=== PATIENT | male | born 1950 | race Caucasian/White ===

== ENCOUNTER → 2017-11-07 10:47 | Outpatient (CLI) | payer OTHER, SELFPAY ==
--- NOTE | 2017-11-07 11:02 | PCM.CR.HP2 ---
CR - History & Physical - General Arrival date:: 11/07/17 Arrival time:: 11:02 Date of Admission: 11/07/17 Referring Physician: LILLIAN Primary Diagnosis: PCI with stent - History of Present Cardiac Event Onset Date: Enter Onset Date of cardiac illnesses in Comment field below Angina:: Yes - 08/24/17 [place]:: No CABG:: No PTCA:: Yes - 08/29/17 Valve Replacement/Repair:: No Pacemaker/ICD: No Type of Symptoms:: chest pain. Interventions with present event:: PTCA Were there any complications?: no - Medications Home Medications: Ambulatory Orders Medication Instructions Recorded Aspirin [Lo-Dose Aspirin EC] 81 mg PO DAILY 11/07/17 Atorvastatin Calcium [Lipitor] 40 mg PO QHS 11/07/17 Brimonidine Tartrate 0.2% 1 drop EACH EYE BID 11/07/17 [Brimonidine 0.2% 5Ml Bottle] Cyanocobalamin (Vitamin B-12) 1,000 mcg PO DAILY 11/07/17 [Vitamin B-12] Doxazosin Mesylate [Cardura] 2 mg PO DAILY 11/07/17 Isosorbide Mononitrate [Imdur] 30 mg PO BID 11/07/17 Metoprolol Tartrate [Lopressor 25 mg PO BID 11/07/17 (Beta [place])] Multivit-Min/Iron/Folic Acid/K 1 tab DAILY 11/07/17 [Adults Multivitamin Caplet] [place]-3 Fatty Acids/Fish Oil [Fish 1 each PO DAILY 11/07/17 Oil 1,000 mg Capsule] Potassium (Otc) [Potassium Otc] 99 mg PO DAILY 11/07/17 Sertraline HCl [Zoloft] 200 mg PO DAILY 11/07/17 Ticagrelor [Brilinta] 90 mg PO BID 11/07/17 Ubidecarenone [Coenzyme Q10] 10 mg DAILY 11/07/17 Vitamin E 400 unit PO DAILY 11/07/17 - Allergies Allergies/Adverse Reactions: Allergies No Known Allergies Allergy (Verified 11/07/17 11:39) - Sleep Disorder Evaluation Hx of Sleep Apnea: No Do you snore loudly (louder than talking or can be heard through closed doors)?: Yes Do you often feel tired/ fatigued/ sleepy during daytime?: Yes Has anyone observed you stop breathing during sleep?: No History of Hypertension (for STOP score): No STOP Results: Positive Advanced Directives - Advanced Directives Power of Service Supervisor: Yes Living Will: Yes Advance Directives Information Provided: Yes Advance Directives on File: No DNR Order?:: No Past Medical History - Problems and Co-Morbidities Problems & Co-Morbidities: Dyslipidemia, Obesity, Sedentary Lifestyle, Depression, Anxiety - Past Medical Illness Past Medical Illness: Arthritis, Back Problems - bad back, Neuropathy - Has PAD, tingling in feet., Kidney/Renal Problems - Has small kidney stones Other Medical Illnesses:: has AAA that is being monitored. Has small gallbladder stones. - Past Cardiac Illness Past Cardiac Illness: Arrhythmias - A fib history - Other Other: Vision/Eye Problems - glaucoma, glasses, Hearing Problems - some [facility] - Cardiology Procedures/Interventions Cardiology Procedures/Interventions: Angioplasty, PCI w/Stenting, Heart Catheterization, Echocardiogram, Stress Test (regular) - Family History Summary Family History: Heart Disease: Sibling, Paternal, Maternal - sister 50's, dad age 64, mom with pacer. Additional Family History: One sister with parkinsons Review of Systems - Review of Systems Hints: Right click = Denies (Slash). Left click = Reports ([place]) Review of Present Symptoms: Reports: PVD, Angina - Seeing top precipitator operator tomorrow due to having occas chest pain., Dizziness/Lightheadedness - Occasionally, Fatigue, Appetite - Normal, Appetite - Special Diet, Sleep - Normal - doesn't sleep well due to PTSD. Denies: Shortness of Breath at Rest, Shortness of Breath with Exertion, Operative Discomfort, Wound Healing, Heart Arrhythmia/Irregularities, Sexual Changes Risk Factor Assessment - Chief Complaint Chief Complaint: To get better - Pulse Pulse Rate: 82 - Hypertension Blood Pressure Sitting - Right Arm: 110/70 Blood Pressure Sitting - Left Arm: 116/70 - Stress Stress: Long-standing - Diabetes Nutrition Referral for Diabetes: Yes - Obesity Height: 1.7 m Weight:: 88.451 kg Weight in Pounds: 195.0 lbs Body Mass Index (BMI): 30.5 Nutritional Referral for Obesity: Yes - Pt plans to contact sourcing manager at [place] for education and join group sessions. - Physical Inactivity Physical Inactivity: None - Risk Stratification Risk Guidelines: Lowest Risk: Risk Factor for Smoking - quit 25 years ago., Risk Factor for Diabetes, Risk Factor for Hypertension, Moderate Risk: Risk Factor for Dyslipidemia, Risk Factor for Obesity, Risk Factor for Sedentary Lifestyle, Highest Risk: Risk Factor for Depression - For Smoking Smoking Risk Guidelines: Smoking Low Risk: None or quit greater than 6 months ago. Smoking Moderate Risk: Smoker or quit 6 months or less ago. Smoking High Risk: Smoker - For Dyslipidemia Dyslipidemia Risk Guidelines: Low Risk: Moderate Risk: High Risk: 15-25% fat 25.1-29% fat >/= 30% fat. <7% sat fat 7-9% sat fat >9% sat fat. <150 mg chol 150-299 mg chol >/= 300 mg chol. LDL <100 LDL 100-129 LDL >/= 130. Chol/HDL ratio <5.0 Chol/HDL ratio 5.0-6.0 Chol/HDL ratio >6.0. Triglycerides <100 Triglycerides 100-149 Triglycerides >/= 150 - For Diabetes Mellitus Diabetes Risk Guidelines: Diabetes Low Risk: HgA1c <6.5% and/or FBG <120. Diabetes Moderate Risk: HgA1c 6.6-7.9% and/or FBG 120-180. Diabetes High Risk: HgA1c >/= 8% and/or FBG >180 - For Obesity/Overweight Obesity/Overweight Risk Guidelines: Obesity Low Risk: BMI <25.0. Obesity Moderate Risk: BMI 25-29.9. Obesity High Risk: BMI >/= 30.0 - For Hypertension Hypertension Risk Guidelines: Hypertension Low Risk: Systolic <120 and Diastolic <80. Hypertension Moderate Risk: Systolic 120-139 and Diastolic 80-89. Hypertension High Risk: Systolic >/= 140 and Diastolic >/= 90 - For Sedentary Lifestyle Sedentary Lifestyle Risk Guidelines: Sedentary Lifestyle Low Risk: >/= 1,500 kcal/week. Sedentary Lifestyle Moderate Risk: 700-1,499 kcal/week. Sedentary Lifestyle High Risk: < 700 kcal/week - For Depression Depression Risk Guidelines: Depression Low Risk: Not clinically depressed. Depression Moderate Risk: Mildly depressed. Depression High Risk: Clinically depressed Social History - Smoking History Smoking Status: Former smoker - Alcohol Use Alcohol Usage: Yes - occas beer or red wine - Occupation Occupation (List type of work in comments):: Retired - Hobbies, Recreation, Social Activities Hobbies: Sports, Other - fishing, hunting, yardwork Recreational Activities: I am able to engage in most, but not all activities Marital Status - Status Marital Status: - Current Living Arrangements Living Environment:: Family, Spouse - Children How many children do you have?: 3 Do any of your children live nearby?: Yes - Safety Do you feel safe in your surroundings?: Yes - Assistance Do you need any assistance at home?: no
--- NOTE | 2017-11-07 11:04 | PCM.CR.ITP ---
Exercise - Initial Assessment - Visit Date of Eval: 11/07/17 - Stages of Change Stages of Change:: Action - Exercise Prescription Mode:: Treadmill, Biodyne, Rower, Airdyne, NuStep - Intervention Home Exercise/Activity Goal:: Sitting Time <3 hrs/day - Education Goals:: Warm-up, RPE JANUSZ Scale, S/S, Safe Exercise, Self-Monitoring Nutrition - Initial Assessment - Program Goals Nutrition Program Goals: LDL <70. Total Cholesterol <200. HDL >45. Triglycerides <150. HgbA1C <7%. BMI <25 - Visit Date of Assessment:: 11/07/17 - Stages of Change Stages of Change:: Action - Diabetes Diabetes:: No - Weight Management Height: 1.7 m Weight:: 88.451 kg - Intervention Referral to dietitian:: Yes - Plans to contact [facility] for physical education specialist counselling. Referral to Diabetic Clinic:: No Will attend diet classes:: Yes - Education Gave educational materials for:: Relate diabetes to coronary artery disease, Healthy eating Tobacco - Initial Assessment - Program Goals Tobacco Program Goals: Complete smoking cessation. Attend education classes. Improve Knowledge Test score - Stage of Change Stages of Change:: Maintenance - quit smoking 25 years ago. - Learning Barriers Learning Barriers: Hearing, Vision, Ready to Learn Total Score:: 6 - Family Support Do you have family support?: Yes - Tobacco Use How long ago did you quit using tobacco products?: Greater than or equal to 6 months ago Do you use smokeless tobacco?: No - Intervention Smoking Cessation Referral:: No Individual Education/Counseling:: No Education Schedule Given:: Yes - Education Gave educational material for:: Coronary artery disease, Risk factors, Sexuality, Medical compliance, Cardiac A&P, Angina signs & symptoms Psychosocial - Initial Assess - Target Goals Target Goals: Assess presence or absence of depression. Using a valid screening tool, maximizes coping skills. Positive support system - Stages of Change Stages of Change:: Action - Psychosocial Test Tool Used:: HANDS Depression Questionnaire Self-reported stress:: yes, PTSD Total Mood Screening Score:: 20 Self-Efficacy Score:: 7 - Intervention PS - Interventions: Yes Referral to Mental Health - already connected with counselling thru [facility], Yes Attend Stress Management Classes, Yes Uses Stress Management Skills, No Referral to [facility] Case Management, No Referral to Physician - Education Gave educational materials for:: Coping techniques, Signs & symptoms of depression, Stress management, Relaxation techniques - Patient/Program Goal Preventative Medication(s):: NIR inhibitor, Clopidogrel, Beta cindy, Statin/lipid - Assistive Devices Assistive Devices:: None Fall Risk Assessed:: Yes Patient Health Questionnaire Initial Assessment 1. Little interest or pleasure in doing things: Nearly every day 2. Feeling down, depressed, or hopeless: Nearly every day 3. Trouble falling or staying asleep, or sleeping too much: Nearly every day 4. Feeling tired or having little energy: Nearly every day 5. Poor appetite or overeating: Nearly every day 6. Feeling bad about yourself -- or that you are a failure or have let yourself or your family down: More than half the days 7. Trouble concentrating on things, such as reading the newspaper or watching television: Several days 8. Moving or speaking so slowly that other people could have noticed. Or the opposite - being so fidgety or restless that you have been moving around a lot more than usual: Several days 9. Thoughts that you would be better off , or of hurting yourself in some way: Several days How difficult have these problems made it for you to do your work, take care of things at home, or get along with other people?: Very difficult - Offered [facility] mental health and info given. Has regular therapist at [facility] sees often. Has crisis number. States is ok now. Total Score: 20 Knowledge Test - Check your knowledge Initial The #1 cause of in the [place] each year is:: Heart disease Which of the following is a common treatment for heart disease?: All of the above The arteries that feed the heart are called:: Coronary arteries HDL cholesterol is known as the good cholesterol.: False What disease increases your risk for heart disease?: Diabetes What food product raises blood cholesterol level the most?: Saturated fat The bad cholesterol in the blood is called:: HDL Hypertension is another word for:: High stress A blood pressure reading of 148/88 is considered normal.: False Exercise will only benefit your health when your heart rate reaches a target level.: True Total Score:: 6 Self-Efficacy Initial Assessment We would like to know how confident you are in doing certain activities. Please select your confidence level for:: Select your confidence level for the following using the scale 1-10 where 1 is not at all confident and 10 is totally confident. Your score is the average of all 6 responses. Fatigue: How confident are you that you can keep the fatigue caused by your disease from interfering with the things you want to do? Select Number: 10 Physical Discomfort or Pain: How confident are you that you can keep the physical discomfort or pain of your disease from interfering with the things you want to do? Select Number: 10 Emotional Distress: How confident are you that you can keep the emotional distress caused by your disease from interfering with the things you want to do? Select Number: 6 Other Symptoms or Health Problems: How confident are you that you can keep other symptoms or health problems from interfering with the things you want to do? Select Number: 6 Different Tasks and Activities: How confident are you that you can do the different tasks and activities needed to manage your health condition so as to reduce your need to see a doctor? Select Number: 5 Medication: How confident are you that you can do things other than just taking medication to reduce how much your illness affects your everyday life? Select Number: 5 Total Score:: 7 Nutrition Survey - Nutrition Survey Instructions Scoring Instructions: Scoring is as follows: Yes = 1 points. No = 0 point. Patient score that is >/=12 is considered to be at potential nutritional risk and could benefit from a referral to a registered dietitian. - Nutrition Survey Initial Have you lost >10 lbs over the past 2 months without trying?: No Are you following a special diet at home for diabetes, low fat, or low salt?: No Are you interested in meeting with a dietitian for help understanding your diet?: Yes Do you eat less than 3 meals a day?: No Do you eat fatty meats (saenz, sausage, ribs, etc), fried foods, desserts, large amounts of salad dressings, margarine, butter, or cheese most days?: Yes Do you have food allergies? [Enter types in comment field]: No Do you eat in restaurants more than 3 times a week?: No Do you season food with salt, seasoning salt, or garlic salt?: Yes Do you used canned, boxed, frozen meals, or soups, seasoning packets?: No - Patient plans to contact [facility] for Dietary referral counselling. Total Score:: 3 Cardiac Rehabilitation Goals - Cardiac Rehab Goals Cardiac Rehabilitation Goals: 1. Maintain the individual as the primary focus of care. 2. To improve the patient's quality of life. 3. Identification of cardiac risk factors and provide cardiac risk factor management. 4. Enhance the psychosocial status of the patient. 5. Reconditioning enough to allow the patient to resume customary activities. 6. Control symptoms of cardiac disease - Scale Scale for measuring improvement of personal goals: Enter appropriate number in Comments. 2 = Unchanged. 3 = Slightly Better. 4 = Moderate Improvement. 5 = Met my Goal Initial Assessment Personal Goals: 30-day Re-assessment: Improve management of stress and emotions, Improve energy level, Participate in home exercise program, Improve knowledge of cardiac disease, Improve muscle strength and endurance, Improve diet and eating habits (eat healthier), Control risk factors (learn risk factor modification), Other goal:
--- NOTE | 2017-11-07 11:20 | CR.HP_ITS ---
CR - History & Physical - General Arrival date:: 11/07/17 Arrival time:: 11:02 Date of Admission: 11/07/17 Referring Physician: LILLIAN Primary Diagnosis: PCI with stent - History of Present Cardiac Event Onset Date: Enter Onset Date of cardiac illnesses in Comment field below Angina:: Yes - 08/24/17 [place]:: No CABG:: No PTCA:: Yes - 08/29/17 Valve Replacement/Repair:: No Pacemaker/ICD: No Type of Symptoms:: chest pain. Interventions with present event:: PTCA Were there any complications?: no - Medications Home Medications: Ambulatory Orders Medication Instructions Recorded Aspirin [Lo-Dose Aspirin EC] 81 mg PO DAILY 11/07/17 Atorvastatin Calcium [Lipitor] 40 mg PO QHS 11/07/17 Brimonidine Tartrate 0.2% 1 drop EACH EYE BID 11/07/17 [Brimonidine 0.2% 5Ml Bottle] Cyanocobalamin (Vitamin B-12) 1,000 mcg PO DAILY 11/07/17 [Vitamin B-12] Doxazosin Mesylate [Cardura] 2 mg PO DAILY 11/07/17 Isosorbide Mononitrate [Imdur] 30 mg PO BID 11/07/17 Metoprolol Tartrate [Lopressor 25 mg PO BID 11/07/17 (Beta [place])] Multivit-Min/Iron/Folic Acid/K 1 tab DAILY 11/07/17 [Adults Multivitamin Caplet] [place]-3 Fatty Acids/Fish Oil [Fish 1 each PO DAILY 11/07/17 Oil 1,000 mg Capsule] Potassium (Otc) [Potassium Otc] 99 mg PO DAILY 11/07/17 Sertraline HCl [Zoloft] 200 mg PO DAILY 11/07/17 Ticagrelor [Brilinta] 90 mg PO BID 11/07/17 Ubidecarenone [Coenzyme Q10] 10 mg DAILY 11/07/17 Vitamin E 400 unit PO DAILY 11/07/17 - Allergies Allergies/Adverse Reactions: Allergies No Known Allergies Allergy (Verified 11/07/17 11:39) - Sleep Disorder Evaluation Hx of Sleep Apnea: No Do you snore loudly (louder than talking or can be heard through closed doors)? : Yes Do you often feel tired/ fatigued/ sleepy during daytime?: Yes Has anyone observed you stop breathing during sleep?: No History of Hypertension (for STOP score): No STOP Results: Positive Advanced Directives - Advanced Directives Power of Pathology Supervisor: Yes Living Will: Yes Advance Directives Information Provided: Yes Advance Directives on File: No DNR Order?:: No Past Medical History - Problems and Co-Morbidities Problems & Co-Morbidities: Dyslipidemia, Obesity, Sedentary Lifestyle, Depression, Anxiety - Past Medical Illness Past Medical Illness: Arthritis, Back Problems - bad back, Neuropathy - Has PAD, tingling in feet., Kidney/Renal Problems - Has small kidney stones Other Medical Illnesses:: has AAA that is being monitored. Has small gallbladder stones. - Past Cardiac Illness Past Cardiac Illness: Arrhythmias - A fib history - Other Other: Vision/Eye Problems - glaucoma, glasses, Hearing Problems - some [facility] - Cardiology Procedures/Interventions Cardiology Procedures/Interventions: Angioplasty, PCI w/Stenting, Heart Catheterization, Echocardiogram, Stress Test (regular) - Family History Summary Family History: Heart Disease: Sibling, Paternal, Maternal - sister 50's, dad age 64, mom with pacer. Additional Family History: One sister with parkinsons Review of Systems - Review of Systems Hints: Right click = Denies ([place]ash). Left click = Reports ([place]) Review of Present Symptoms: Reports: PVD, Angina - Seeing tractor mechanic apprentice tomorrow due to having occas chest pain., Dizziness/Lightheadedness - Occasionally, Fatigue, Appetite - Normal, Appetite - Special Diet, Sleep - Normal - doesn't sleep well due to PTSD. Denies: Shortness of Breath at Rest, Shortness of Breath with Exertion, Operative Discomfort, Wound Healing, Heart Arrhythmia/ Irregularities, Sexual Changes Risk Factor Assessment - Chief Complaint Chief Complaint: To get better - Pulse Pulse Rate: 82 - Hypertension Blood Pressure Sitting - Right Arm: 110/70 Blood Pressure Sitting - Left Arm: 116/70 - Stress Stress: Long-standing - Diabetes Nutrition Referral for Diabetes: Yes - Obesity Height: 1.7 m Weight:: 88.451 kg Weight in Pounds: 195.0 lbs Body Mass Index (BMI): 30.5 Nutritional Referral for Obesity: Yes - Pt plans to contact morgue technician at [place] for education and join group sessions. - Physical Inactivity Physical Inactivity: None - Risk Stratification Risk Guidelines: Lowest Risk: Risk Factor for Smoking - quit 25 years ago., Risk Factor for Diabetes, Risk Factor for Hypertension, Moderate Risk: Risk Factor for Dyslipidemia, Risk Factor for Obesity, Risk Factor for Sedentary Lifestyle, Highest Risk: Risk Factor for Depression - For Smoking Smoking Risk Guidelines: Smoking Low Risk: None or quit greater than 6 months ago. Smoking Moderate Risk: Smoker or quit 6 months or less ago. Smoking High Risk: Smoker - For Dyslipidemia Dyslipidemia Risk Guidelines: Low Risk: Moderate Risk: High Risk: 15-25% fat 25.1-29% fat >/= 30% fat. <7% sat fat 7-9% sat fat >9% sat fat. <150 mg chol 150-299 mg chol >/= 300 mg chol. LDL <100 LDL 100-129 LDL >/= 130. Chol/HDL ratio <5.0 Chol/HDL ratio 5.0-6.0 Chol/HDL ratio >6.0. Triglycerides <100 Triglycerides 100-149 Triglycerides >/= 150 - For Diabetes Mellitus Diabetes Risk Guidelines: Diabetes Low Risk: HgA1c <6.5% and/or FBG <120. Diabetes Moderate Risk: HgA1c 6.6-7.9% and/or FBG 120-180. Diabetes High Risk: HgA1c >/= 8% and/or FBG >180 - For Obesity/Overweight Obesity/Overweight Risk Guidelines: Obesity Low Risk: BMI <25.0. Obesity Moderate Risk: BMI 25-29.9. Obesity High Risk: BMI >/= 30.0 - For Hypertension Hypertension Risk Guidelines: Hypertension Low Risk: Systolic <120 and Diastolic <80. Hypertension Moderate Risk: Systolic 120-139 and Diastolic 80-89. Hypertension High Risk: Systolic >/= 140 and Diastolic >/= 90 - For Sedentary Lifestyle Sedentary Lifestyle Risk Guidelines: Sedentary Lifestyle Low Risk: >/= 1 ,500 kcal/week. Sedentary Lifestyle Moderate Risk: 700-1,499 kcal/week. Sedentary Lifestyle High Risk: < 700 kcal/week - For Depression Depression Risk Guidelines: Depression Low Risk: Not clinically depressed. Depression Moderate Risk: Mildly depressed. Depression High Risk: Clinically depressed Social History - Smoking History Smoking Status: Former smoker - Alcohol Use Alcohol Usage: Yes - occas beer or red wine - Occupation Occupation (List type of work in comments):: Retired - Hobbies, Recreation, Social Activities Hobbies: Sports, Other - fishing, hunting, yardwork Recreational Activities: I am able to engage in most, but not all activities Marital Status - Status Marital Status: - Current Living Arrangements Living Environment:: Family, Spouse - Children How many children do you have?: 3 Do any of your children live nearby?: Yes - Safety Do you feel safe in your surroundings?: Yes - Assistance Do you need any assistance at home?: no
--- NOTE | 2017-11-07 11:27 | CR.ITP_ITS ---
Exercise - Initial Assessment - Visit Date of Eval: 11/07/17 - Stages of Change Stages of Change:: Action - Exercise Prescription Mode:: Treadmill, Biodyne, Rower, Airdyne, NuStep - Intervention Home Exercise/Activity Goal:: Sitting Time <3 hrs/day - Education Goals:: Warm-up, RPE JANUSZ Scale, S/S, Safe Exercise, Self-Monitoring Nutrition - Initial Assessment - Program Goals Nutrition Program Goals: LDL <70. Total Cholesterol <200. HDL >45. Triglycerides <150. HgbA1C <7%. BMI <25 - Visit Date of Assessment:: 11/07/17 - Stages of Change Stages of Change:: Action - Diabetes Diabetes:: No - Weight Management Height: 1.7 m Weight:: 88.451 kg - Intervention Referral to dietitian:: Yes - Plans to contact [facility] for email engineer counselling. Referral to Diabetic Clinic:: No Will attend diet classes:: Yes - Education Gave educational materials for:: Relate diabetes to coronary artery disease, Healthy eating Tobacco - Initial Assessment - Program Goals Tobacco Program Goals: Complete smoking cessation. Attend education classes. Improve Knowledge Test score - Stage of Change Stages of Change:: Maintenance - quit smoking 25 years ago. - Learning Barriers Learning Barriers: Hearing, Vision, Ready to Learn Total Score:: 6 - Family Support Do you have family support?: Yes - Tobacco Use How long ago did you quit using tobacco products?: Greater than or equal to 6 months ago Do you use smokeless tobacco?: No - Intervention Smoking Cessation Referral:: No Individual Education/Counseling:: No Education Schedule Given:: Yes - Education Gave educational material for:: Coronary artery disease, Risk factors, Sexuality , Medical compliance, Cardiac A&P, Angina signs & symptoms Psychosocial - Initial Assess - Target Goals Target Goals: Assess presence or absence of depression. Using a valid screening tool, maximizes coping skills. Positive support system - Stages of Change Stages of Change:: Action - Psychosocial Test Tool Used:: HANDS Depression Questionnaire Self-reported stress:: yes, PTSD Total Mood Screening Score:: 20 Self-Efficacy Score:: 7 - Intervention PS - Interventions: Yes Referral to Mental Health - already connected with counselling thru [facility], Yes Attend Stress Management Classes, Yes Uses Stress Management Skills, No Referral to [facility] Case Management, No Referral to Physician - Education Gave educational materials for:: Coping techniques, Signs & symptoms of depression, Stress management, Relaxation techniques - Patient/Program Goal Preventative Medication(s):: NIR inhibitor, Clopidogrel, Beta cindy, Statin/ lipid - Assistive Devices Assistive Devices:: None Fall Risk Assessed:: Yes Patient Health Questionnaire Initial Assessment 1. Little interest or pleasure in doing things: Nearly every day 2. Feeling down, depressed, or hopeless: Nearly every day 3. Trouble falling or staying asleep, or sleeping too much: Nearly every day 4. Feeling tired or having little energy: Nearly every day 5. Poor appetite or overeating: Nearly every day 6. Feeling bad about yourself -- or that you are a failure or have let yourself or your family down: More than half the days 7. Trouble concentrating on things, such as reading the newspaper or watching television: Several days 8. Moving or speaking so slowly that other people could have noticed. Or the opposite - being so fidgety or restless that you have been moving around a lot more than usual: Several days 9. Thoughts that you would be better off , or of hurting yourself in some way: Several days How difficult have these problems made it for you to do your work, take care of things at home, or get along with other people?: Very difficult - Offered [facility] mental health and info given. Has regular therapist at [facility] sees often. Has crisis number. States is ok now. Total Score: 20 Knowledge Test - Check your knowledge Initial The #1 cause of in the [place] each year is:: Heart disease Which of the following is a common treatment for heart disease?: All of the above The arteries that feed the heart are called:: Coronary arteries HDL cholesterol is known as the good cholesterol.: False What disease increases your risk for heart disease?: Diabetes What food product raises blood cholesterol level the most?: Saturated fat The bad cholesterol in the blood is called:: HDL Hypertension is another word for:: High stress A blood pressure reading of 148/88 is considered normal.: False Exercise will only benefit your health when your heart rate reaches a target level.: True Total Score:: 6 Self-Efficacy Initial Assessment We would like to know how confident you are in doing certain activities. Please select your confidence level for:: Select your confidence level for the following using the scale 1-10 where 1 is not at all confident and 10 is totally confident. Your score is the average of all 6 responses. Fatigue: How confident are you that you can keep the fatigue caused by your disease from interfering with the things you want to do? Select Number: 10 Physical Discomfort or Pain: How confident are you that you can keep the physical discomfort or pain of your disease from interfering with the things you want to do? Select Number: 10 Emotional Distress: How confident are you that you can keep the emotional distress caused by your disease from interfering with the things you want to do? Select Number: 6 Other Symptoms or Health Problems: How confident are you that you can keep other symptoms or health problems from interfering with the things you want to do? Select Number: 6 Different Tasks and Activities: How confident are you that you can do the different tasks and activities needed to manage your health condition so as to reduce your need to see a doctor? Select Number: 5 Medication: How confident are you that you can do things other than just taking medication to reduce how much your illness affects your everyday life? Select Number: 5 Total Score:: 7 Nutrition Survey - Nutrition Survey Instructions Scoring Instructions: Scoring is as follows: Yes = 1 points. No = 0 point. Patient score that is >/=12 is considered to be at potential nutritional risk and could benefit from a referral to a registered dietitian. - Nutrition Survey Initial Have you lost >10 lbs over the past 2 months without trying?: No Are you following a special diet at home for diabetes, low fat, or low salt?: No Are you interested in meeting with a dietitian for help understanding your diet? : Yes Do you eat less than 3 meals a day?: No Do you eat fatty meats (saenz, sausage, ribs, etc), fried foods, desserts, large amounts of salad dressings, margarine, butter, or cheese most days?: Yes Do you have food allergies? [Enter types in comment field]: No Do you eat in restaurants more than 3 times a week?: No Do you season food with salt, seasoning salt, or garlic salt?: Yes Do you used canned, boxed, frozen meals, or soups, seasoning packets?: No - Patient plans to contact [facility] for Dietary referral counselling. Total Score:: 3 Cardiac Rehabilitation Goals - Cardiac Rehab Goals Cardiac Rehabilitation Goals: 1. Maintain the individual as the primary focus of care. 2. To improve the patient's quality of life. 3. Identification of cardiac risk factors and provide cardiac risk factor management. 4. Enhance the psychosocial status of the patient. 5. Reconditioning enough to allow the patient to resume customary activities. 6. Control symptoms of cardiac disease - Scale Scale for measuring improvement of personal goals: Enter appropriate number in Comments. 2 = Unchanged. 3 = Slightly Better. 4 = Moderate Improvement. 5 = Met my Goal Initial Assessment Personal Goals: 30-day Re-assessment: Improve management of stress and emotions , Improve energy level, Participate in home exercise program, Improve knowledge of cardiac disease, Improve muscle strength and endurance, Improve diet and eating habits (eat healthier), Control risk factors (learn risk factor modification), Other goal:
[2017-11-07 12:28] VITALS: BP 110/70; BP 116/70; PULSE 82; BMI 30.5
== END ==
PROVIDERS: Family Provider Family Medicine; PCP Family Medicine
DX: I25.10 Atherosclerotic heart disease of native coronary artery without angina pectoris (principal)

== ENCOUNTER 2017-11-15 11:30 | Outpatient (RCR) | payer OTHER, SELFPAY | END 2017-11-16 23:59 | LOC: CR 11:30 | PROVIDERS: Family Provider Family Medicine; PCP Family Medicine | DX: I25.10 Atherosclerotic heart disease of native coronary artery without angina pectoris (principal) | CPT/HCPCS: 93798 ==

== ENCOUNTER 2017-12-16 11:30 | Outpatient (RCR) | payer OTHER, SELFPAY ==
--- NOTE | 2017-12-09 13:39 | PCM.CR.ITP ---
General Information - General Information Admitting Diagnosis: PTCA w/coronary stenting - Education/Goals Barriers to Learning: Hearing Impairment, Vision Impairment Individual Counseling: Initial Assessment: Abnormal Cholesterol Levels, High Blood Pressure, Overweight/Obesity, Sedentary Lifestyle, 30-Day Assessment: Abnormal Cholesterol Levels, High Blood Pressure, Overweight/Obesity, Sedentary Lifestyle, 60-Day Assessment: Abnormal Cholesterol Levels, High Blood Pressure, Overweight/Obesity, Sedentary Lifestyle Cardiac Rehabilitation Goals: 1. Maintain the individual as the primary focus of care. 2. To improve the patient's quality of life. 3. Identification of cardiac risk factors and provide cardiac risk factor management. 4. Enhance the psychosocial status of the patient. 5. Reconditioning enough to allow the patient to resume customary activities. 6. Control symptoms of cardiac disease Scale for measuring improvement of personal goals: Enter appropriate number in Comments. 2 = Unchanged. 3 = Slightly Better. 4 = Moderate Improvement. 5 = Met my Goal Personal Goals: Initial Assessment: Improve management of stress and emotions - doing better, Improve energy level - improved, Participate in home exercise program, Improve knowledge of cardiac disease - in progress, Improve muscle strength and endurance - increased, Improve diet and eating habits (eat healthier) - healthier choices, Control risk factors (learn risk factor modification), 30-day Re-assessment: Improve management of stress and emotions, Improve energy level, Participate in home exercise program, Improve knowledge of cardiac disease, Improve muscle strength and endurance, Improve diet and eating habits (eat healthier), Control risk factors (learn risk factor modification) Exercise - 60-Day Assessment - Visit Date of Eval: 12/09/17 Session #:: 12 - Approved for 18 through [facility] - Stages of Change Stages of Change:: Action - Exercise Prescription Mode:: Treadmill, Rower, Airdyne, NuStep Frequency (x/week): 3 Duration:: 35 METs: 4.5 Target Heart Rate:: 113-120 w/ max HR 123 - Hypertension Resting Blood Pressure:: 120/62 Peak Exercise Blood Pressure:: 140/64 Medication Changes:: No - Intervention Home Exercise/Activity Goal:: Moderate Exercise 30 min/day x 5 days/wk - Education Goals:: Warm-up, RPE JANUSZ Scale, S/S, Safe Exercise, Self-Monitoring - Exercise Program Goals Exercise Program Goals: Aerobic Activity >30 min - walking more Nutrition - 60-Day Assessment - Program Goals Nutrition Program Goals: LDL <70. Total Cholesterol <200. HDL >45. Triglycerides <150. HgbA1C <7%. BMI <25 - Visit Date of Eval: 12/09/17 - Stages of Change Stages of Change:: Action - Lipids Has the patient seen the dietitian?: No - Diabetes Diabetes:: No Insulin: No Non-Insulin Dependent?: No - Intervention Referral to dietitian:: No Referral to Diabetic Clinic:: No Will attend diet classes:: Yes - Education Attended class for:: Healthy eating Tobacco - Initial Assessment - Program Goals Tobacco Program Goals: Complete smoking cessation. Attend education classes. Improve Knowledge Test score - Learning Barriers Learning Barriers: Hearing, Vision, Ready to Learn Tobacco - 60-Day Assessment - Program Goals Tobacco Program Goals: Complete smoking cessation. Attend education classes. Improve Knowledge Test score - Stage of Change Stages of Change:: Action - Learning Barriers Learning Barriers: Participates in education - Family Support Do you have family support?: Yes - Tobacco Use Tobacco Use: Non-smoker Do you use smokeless tobacco?: No - Intervention Smoking Cessation Referral:: No Individual Education/Counseling:: No Education Schedule Given:: Yes - Education Attended class for:: Coronary artery disease, Risk factors, Sexuality, Medical compliance, Cardiac A&P, Angina signs & symptoms Psychosocial - Initial Assess - Target Goals Target Goals: Assess presence or absence of depression. Using a valid screening tool, maximizes coping skills. Positive support system - Psychosocial Test Tool Used:: HANDS Depression Questionnaire - Assistive Devices Fall Risk Assessed:: Yes Psychosocial - 60-Day Assess - Target Goals Target Goals: Assess presence or absence of depression. Using a valid screening tool, maximizes coping skills. Positive support system - Stages of Change Stages of Change:: Action - Psychosocial Test Tool Used:: HANDS Depression Questionnaire Self-reported stress:: no - Intervention PS - Interventions: Yes Attend Stress Management Classes, Yes Uses Stress Management Skills, No Referral to Mental Health, No Referral to [facility] Case Management, No Referral to Physician - Education Attended classes for:: Coping techniques, Signs & symptoms of depression, Stress management, Relaxation techniques - Patient/Program Goal Preventative Medication(s):: Aspirin, Clopidogrel, Statin/lipid - Assistive Devices Assistive Devices:: None Fall Risk Assessed:: Yes Patient Health Questionnaire 60-Day Re-eval Assessment 1. Little interest or pleasure in doing things: More than half the days 2. Feeling down, depressed, or hopeless: More than half the days 3. Trouble falling or staying asleep, or sleeping too much: More than half the days 4. Feeling tired or having little energy: More than half the days 5. Poor appetite or overeating: Several days 6. Feeling bad about yourself -- or that you are a failure or have let yourself or your family down: Several days 7. Trouble concentrating on things, such as reading the newspaper or watching television: Not at all 8. Moving or speaking so slowly that other people could have noticed. Or the opposite - being so fidgety or restless that you have been moving around a lot more than usual: Not at all 9. Thoughts that you would be better off , or of hurting yourself in some way: Not at all How difficult have these problems made it for you to do your work, take care of things at home, or get along with other people?: Somewhat difficult Total Score: 10 Self-Efficacy 60-Day Re-eval Assessment We would like to know how confident you are in doing certain activities. Please select your confidence level for:: Select your confidence level for the following using the scale 1-10 where 1 is not at all confident and 10 is totally confident. Your score is the average of all 6 responses. Fatigue: How confident are you that you can keep the fatigue caused by your disease from interfering with the things you want to do? Select Number: 10 Physical Discomfort or Pain: How confident are you that you can keep the physical discomfort or pain of your disease from interfering with the things you want to do? Select Number: 10 Emotional Distress: How confident are you that you can keep the emotional distress caused by your disease from interfering with the things you want to do? Select Number: 8 Other Symptoms or Health Problems: How confident are you that you can keep other symptoms or health problems from interfering with the things you want to do? Select Number: 8 Different Tasks and Activities: How confident are you that you can do the different tasks and activities needed to manage your health condition so as to reduce your need to see a doctor? Select Number: 9 Medication: How confident are you that you can do things other than just taking medication to reduce how much your illness affects your everyday life? Select Number: 7 Total Score:: 8
[2017-12-09 13:46] VITALS: BP 120/62; BP 140/64
== END 2017-12-16 23:59 ==
LOC: CR 11:30
PROVIDERS: Family Provider Family Medicine; PCP Family Medicine
DX: I25.10 Atherosclerotic heart disease of native coronary artery without angina pectoris (principal)
CPT/HCPCS: 93798

== ENCOUNTER 2017-12-25 11:30 | Outpatient (RCR) | payer OTHER, SELFPAY ==
[2017-12-17 01:00] VITALS: BP 120/62; BP 140/64
== END 2018-01-16 23:59 ==
LOC: CR 11:30
PROVIDERS: Family Provider Family Medicine; PCP Family Medicine
DX: I25.10 Atherosclerotic heart disease of native coronary artery without angina pectoris (principal)
CPT/HCPCS: 93798

== ENCOUNTER 2018-05-05 18:11 | Emergency (ER) | payer MEDICARE, SELFPAY ==
[2018-05-05 18:12] VITALS: BP 185/90; PULSE 70; RESP 19; TEMP 37; O2SAT 100; BMI 29.7
--- NOTE | 2018-05-05 18:25 | EKG12_ITS ---
Test Reason : Blood Pressure : / mmHG Vent. Rate : 068 BPM Atrial Rate : 068 BPM P-R Int : 158 ms QRS Dur : 086 ms QT Int : 430 ms P-R-T Axes : 051 -26 009 degrees QTc Int : 457 ms Sinus rhythm with occasional Premature ventricular complexes Otherwise normal ECG Confirmed by BELA SUH, ALICIA ([id number]), web content editor ANTHONY GRAY ([id number]) on 05/08/2018 1:08:38 PM Referred By: Lucy Kruger Confirmed By:ALICIA CRAMER MD
--- NOTE | 2018-05-05 18:25 | US_ITS ---
STUDY: ABDOMINAL ULTRASOUND - RIGHT UPPER QUADRANT REASON FOR VISIT: Male, 67 years old. Right upper quadrant pain. TECHNIQUE: Ultrasound evaluation of the right upper quadrant was performed with real-time and static tubbs-scale imaging. TECHNICAL QUALITY: Adequate. COMPARISON: None. FINDINGS: Liver: The liver measures 19.8 cm. There is normal echogenicity of the liver. The bile ducts are within normal limits. There is hepatic color flow. The direction of portal flow is hepatopetal. There is no demonstrated mass lesion. Gallbladder: Normal distended gallbladder. The gallbladder wall measures 2.5 mm. There is a negative sonographic Rodriguez's sign. There is no pericholecystic fluid. There is a gallstone and sludge within the gallbladder. Common Bile Duct (C.B.D.): The common bile duct measures 2.7 mm. Pancreas: Normal size of the head, body and tail of the pancreas. There is normal echogenicity of the pancreas. There is no demonstrated pancreatic mass or cyst. Right Kidney: Normal size of the right kidney. The right kidney measures 13.8 cm in length. Normal renal cortex. There is no demonstrated renal mass or cyst. There is no right hydronephrosis. US/Gallbladder IMPRESSION: Cholelithiasis associated with fluid within the gallbladder. Electronically Signed: Agnieszka Morales MD at 19:49 EDT Tel , Service support ,
--- NOTE | 2018-05-05 18:33 | ED.RN ---
no old ekg's in [facility]
[2018-05-05] MEDS: Ondansetron 4 MG/2 ML Vial IV (18:47)
[2018-05-05] MEDS: Morphine 4 MG/ML Syringe IV (18:48)
[2018-05-05] MEDS: 0.9% Normal Saline 1,000 ML 125 ML IV (18:48)
--- NOTE | 2018-05-05 18:48 | ED.DCSUM_ITS ---
- ER Visit Summary Date of Service: 05/05/18 Chief Complaint: Abdominal pain History of Present Illness: The patient is a 67 M who goes to the [facility]. He reports that he has epigastric and right upper quadrant abdominal pain began 3 hours ago. This is approximately 1 hour after he ate [employer]. He reports that he has a known history of gallstones. He describes an aching pains 10 at 10 severity. Is worsened by nothing. He took Aleve without any relief. He has had nausea without vomiting. No diarrhea. His last problem was today. He has had no melena hematochezia. No dysuria frequency. No fever or chills. No chest pain or shortness of breath. Physical Examination: Vitals: Stable. Afebrile. General: Well-nourished and well-developed. Head: Normocephalic atraumatic. Neck: Supple, no lymphadenopathy. No JVD. Nontender. Cardiovascular: Regular rate and rhythm. No murmurs. Respiratory: No respiratory distress. Clear to auscultation bilaterally. Abdominal: Soft, moderate epigastric and right upper quadrant tenderness to palpation, nondistended, normal bowel sounds. No guarding, rebound, or peritoneal signs. Back: Nontender. Extremities: Nontender, no edema. Skin: Normal color, no rash. Neurologic: Alert and oriented ?3. Cranial nerves II through XII are intact. Normal strength and sensation. Psych: Normal affect. Test Results: EKG is sinus at 60 with PVCs and nonspecific [address] changes. There is no old EKG for comparison. CBC is more for platelets 109, segmented neutrophils 75, lymphocytes 15. Chem-7 more for glucose 122. LFTs are normal. Lipase normal. Troponin is negative. Ultrasound shows a normal distended gallbladder with a 2.5 mm wall. No Rodriguez sign. No pericholecystic fluid. Common bile duct 2.7 mm. There are gallstones and sludge. Emergency Department Course and Treatment: Patient had an IV placed. He was given morphine and Zofran IV. He is resting comfortably. On repeat exam patient's resting comfortably and is nontender. Treatment Plan: Patient will be discharged with Zofran and [place]. Instructed to follow-up with the surgeon at the [facility] for Dr. Cavazos, who is on- call for no doc, today for further evaluation. In the meantime was instructed to avoid fatty foods. Return to the emergency department for any worsening symptoms. Disposition: To home in improved and stable condition. Impression: 1. Cholelithiasis. 2. Biliary colic. This note was generated with [employer] dictation software. It may contain incorrect words, spelling, and punctuation that were not noted in review of the chart prior to signing ED Disposition - Plan for ED Patient: Chief Complaint: Abd Pain Instructions: ED Abdominal Pain Gallstone Poss Prescriptions: Hydrocodone Bitart/Apap 5-325 [[place] 5MG-325MG] 1 - 2 tablet PO Q4H PRN PRN 3 Days #12 tablet PRN Reason: Pain Ondansetron [Zofran Odt] 4 mg PO Q8H PRN PRN #10 tablet PRN Reason: Nausea Referrals: Deepak Cavazos MD [STAFF PHYSICIAN] - As soon as possible Doctor,Your [STAFF PHYSICIAN] - As soon as possible
[2018-05-05 18:50] LABS: Absolute Lymphocyte Count 1.03 X10^3/ul (0.83-4.51); Absolute Neutrophil Count 5.3 X10^3/uL (2.0-7.7); Basophil# 0.01 X10^3/uL; Basophil% 0.1 % (0-1); Eosinophil# 0.03 X10^3/uL; Eosinophils% 0.4 % (0-5); Hematocrit 41.2 % (40-54); Hemoglobin 13.7 g/dl (13.0-16.5); Lymphocyte # 1.03 X10^3/ul (4.0); Lymphocyte % 14.7 % (19-41); Mean Corp Hgb Conc 33.3 g/gl (32-36); Mean Corpuscular Hgb 29.5 pg (27.0-32.0); Mean Corpuscular Volume 88.6 fL (80-94); Mean Platelet Vol. 12.1 fl (6.2-12.0); Monocyte# 0.64 X10^3/uL; Monocyte% 9.1 % (0-10); Neutrophil # 5.29 X10^3/uL (2.7-7.7); Neutrophil % 75.4 % (47-70); POSITIVE COUNT NO; POSITIVE DIFFERENTIAL NO; POSITIVE MORPHOLOGY NO; Platelet Count 109 K/mm3 (150-450); RBC Distribution Width SD 51.4 fl (35.1-43.9); Red Blood Count 4.65 M/mm3 (4.6-6.2)
[2018-05-05 19:07] LABS: AST(SGOT) 15 U/L (15-37); Alanine Aminotransfer ALT/SGPT 32 U/L (16-61); Albumin, Serum 3.8 g/dL (3.2-5.0); Alkaline Phosphatase 58 U/L (45-117); Anion Gap 7 (5-15); BUN 14 mg/dL (7-18); BUN/Creat Ratio 14.6 RATIO (10-20); Bilirubin, Direct 0.19 mg/dL (0.00-0.30); Calcium,Total 8.8 mg/dL (8.5-10.1); Chloride 105 mmol/L (98-107); Creatinine, Serum 0.96 mg/dL (0.70-1.30); EST Glomerular Filtration Rate 82 mL/min (>60); Est Glom Filt Rate - Afr Amer 100 mL/min (>60); Globulin 3.8 g/dL (2.2-4.2); Glucose 122 mg/dL (74-106); Lipase 195 U/L (73-393); Potassium 4.1 mmol/L (3.5-5.1); Protein, Total 7.6 g/dL (6.4-8.2); Sodium Level 140 mmol/L (136-145)
[2018-05-05 21:15] VITALS: BP 141/71; PULSE 78; RESP 16
[2018-05-05] MEDS: HYDROcodone Bitartrate/Apap 5/325 Tablet PO (21:21)
== END 2018-05-05 21:22 | disposition home or self-care (01) ==
PROVIDERS: Emergency Provider Emergency Medicine; Family Provider Family Medicine; PCP Family Medicine
DX: K80.20 Calculus of gallbladder without cholecystitis without obstruction (principal); I25.10 Atherosclerotic heart disease of native coronary artery without angina pectoris; I49.3 Ventricular premature depolarization; N40.0 Benign prostatic hyperplasia without lower urinary tract symptoms; Z79.82 Long term (current) use of aspirin; Z79.02 Long term (current) use of antithrombotics/antiplatelets; Z79.899 Other long term (current) drug therapy; Z87.442 Personal history of urinary calculi
CPT/HCPCS: 76705; 80048; 80076; 83690; 84484; 85025; 93005; 96361; 96374; 96375; 99283; J7030; A4216; J2405

== ENCOUNTER 2018-06-18 21:51 | Observation (INO) | payer OTHER, MEDICARE, SELFPAY ==
[2018-06-18 21:53] VITALS: BP 131/89; PULSE 96; RESP 16; TEMP 36.7; O2SAT 96; BMI 31.1
--- NOTE | 2018-06-18 22:07 | RAD_ITS ---
STUDY: X-RAY CHEST REASON FOR EXAM: Male, 68 years old. Shortness of breath TECHNIQUE: 2 views COMPARISON: None. FINDINGS: Lung stuart are expanded without major consolidation, focal atelectasis or substantial pleural effusion. There is no demonstrated pleural abnormality. Normal size heart. Normal mediastinum and tata. Normal visualized pulmonary arteries. Normal visualized aortic arch and descending thoracic aorta. There are diffuse degenerative changes of the visualized thoracic spine. Normal visualized ribs, clavicles, and shoulders. There is no demonstrated abnormality of the visualized soft tissue structures of the upper abdomen. RAD/Chest PA and Lateral IMPRESSION: No acute cardiopulmonary findings. Negative for major consolidation, focal atelectasis, pleural effusion or cardiomegaly. Electronically Signed: Sandra Sy MD at 23:03 EDT , Service support ,
--- NOTE | 2018-06-18 22:07 | EKG12_ITS ---
Test Reason : CP Blood Pressure : / mmHG Vent. Rate : 097 BPM Atrial Rate : 097 BPM P-R Int : 172 ms QRS Dur : 088 ms QT Int : 344 ms P-R-T Axes : 042 -30 041 degrees QTc Int : 436 ms Normal sinus rhythm Left axis deviation Abnormal ECG Confirmed by BELA SUH, ALICIA ([id number]), editor trade journal ANTHONY GRAY ([id number]) on 06/25/2018 2:26:37 PM Referred By: DR OLIVAREZ Confirmed By:ALICIA CRAMER MD
[2018-06-18 22:16] VITALS: O2SAT 94
[2018-06-18] MEDS: Aspirin 81 MG TAB.CHEW 324 MG PO (22:22)
[2018-06-18 22:44] LABS: Absolute Lymphocyte Count 1.27 X10^3/ul (0.83-4.51); Absolute Neutrophil Count 5.1 X10^3/uL (2.0-7.7); Basophil# 0.01 X10^3/uL; Basophil% 0.1 % (0-1); Eosinophil# 0.03 X10^3/uL; Eosinophils% 0.4 % (0-5); Hematocrit 39.4 % (40-54); Hemoglobin 12.9 g/dl (13.0-16.5); Lymphocyte # 1.27 X10^3/ul (4.0); Mean Corp Hgb Conc 32.7 g/gl (32-36); Mean Corpuscular Hgb 29.1 pg (27.0-32.0); Mean Corpuscular Volume 88.9 fL (80-94); Mean Platelet Vol. 12.1 fl (6.2-12.0); Monocyte# 0.61 X10^3/uL; Monocyte% 8.6 % (0-10); Neutrophil # 5.13 X10^3/uL (2.7-7.7); Neutrophil % 72.8 % (47-70); POSITIVE COUNT NO; POSITIVE DIFFERENTIAL NO; POSITIVE MORPHOLOGY NO; Platelet Count 103 K/mm3 (150-450); RBC Distribution Width CV 15.8 % (11.6-14.6); RBC Distribution Width SD 51.1 fl (35.1-43.9); Red Blood Count 4.43 M/mm3 (4.6-6.2); White Blood Count 7.1 K/mm3 (4.4-11.0)
[2018-06-18 22:52] VITALS: BP 139/72; PULSE 88; RESP 16; O2SAT 96
[2018-06-18 22:58] LABS: Anion Gap 7 (5-15); BUN 19 mg/dL (7-18); BUN/Creat Ratio 25.1 RATIO (10-20); Calcium,Total 8.6 mg/dL (8.5-10.1); Chloride 106 mmol/L (98-107); Creatinine, Serum 0.76 mg/dL (0.70-1.30); EST Glomerular Filtration Rate 108 mL/min (>60); Est Glom Filt Rate - Afr Amer 131 mL/min (>60); Estimated Creatinine Clearance 64.26 ml/min; Glucose 138 mg/dL (74-106); Potassium 3.6 mmol/L (3.5-5.1); Sodium Level 140 mmol/L (136-145)
[2018-06-18 23:00] VITALS: BP 119/72; PULSE 87; RESP 16; O2SAT 96
--- NOTE | 2018-06-18 23:23 | ED.DCSUM_ITS ---
- ER Visit Summary Date of Service: 06/18/18 Chief Complaint: Chest pain History of Present Illness: The patient is a 68 M presenting for evaluation secondary chest pain. Patient states that approximately 30 minutes prior to arrival he had a relatively sudden onset of chest pain. He described it as a aching type sensation that was 10 out of 10 and seemed to be alleviated by a full course of his nitroglycerin. Patient has a history of coronary artery disease. Patient reports that he had PCI performed in August with stenting. Patient states that he has been church about taking his antiplatelet medications. He denies any DVT or PE risk factors. He states that he does have a mild headache associated with this review of systems otherwise negative. Physical Examination: Vital signs are within normal limits, patient is afebrile. General: Patient is well-nourished well-developed and in no acute distress. Head: Normocephalic, atraumatic Eyes: Pupils equal round and reactive bilaterally, extra occular motion intact bialterally ENT: Moist mucous membranes Neck: Supple, no lymphadenopathy, no JVD, no meningismus CVS: Heart regular rate and rhythm, no murmurs, rubs or gallops, radial pulses 2+ bilaterally Resp: Respirations nondistressed, lung sounds clear bilaterally Abdomen: Soft, nontender, nondistended, no palpable masses, normal bowel sounds Back: Nontender Extremities: Nontender, atraumatic, active full range of motion, no peripheral edema Skin: warm, no rashes, no petechia Neuro: Alert and oriented x 4, CN 2-12 intact, no lateralizing neurological defecits Psyc: Normal affect Test Results: EKG demonstrates a sinus rhythm at 97 with left axis deviation isoelectric ST segments normal T waves. CBC chemistry troponin are negative. Chest x-ray shows no acute pathology per my personal review and radiology. Emergency Department Course and Treatment: Patient presented for evaluation secondary chest pain. Workup was negative as noted above. Patient was chest pain-free on repeat evaluation. Patient's heart score is 5, he is almost a year out from his angioplasty so I do believe that he requires observation admission at this point. I discussed patient with hospitalist and patient will be admitted. Disposition: Admission Impression: 1. Chest pain This note was generated with [employer] dictation software. It may contain incorrect words, spelling, and punctuation that were not noted in review of the chart prior to signing ED Disposition - Plan for ED Patient: Chief Complaint: Chest Pain [facility] [[facility] Provider] -
--- NOTE | 2018-06-18 23:25 | HP.PCM_ITS ---
Problem List (1) Chest pain Status: Acute History of Present Illness Date of Admission: 06/18/18 Chief Complaint: chest Pain The patient is a 68 year old M with a significant history of CAD status post stent; hypertension; GERD; hyperlipidemia who presented with excruciating constant chest pain that started few hours before his admission. He rated his pain as a 10 out of 10 on onset. His pain was sudden onset. Patient reported that his pain started at about 9:30 PM on the day of his admission. His pain radiated to his left upper extremity. He denies any nausea vomiting or diaphoresis. His pain started whiles he was cleaning his room. In route to the emergency department he took 3 tablets of nitroglycerin which brought his pain to a 2-3 out of 10. His pain started an hour to an hour and a half after eating. Patient reports that in August 2017 he had 2 stents placed in an at risk at the back of his heart (?PDA). At that time he had 98% blockage in the small artery that could not be stented. He reported that he had a 40-45% at an artery that runs in front of his heart (?LAD) He reported that he sees her doctor at the [facility] [place] ([facility] His driver utility worker name is Dr. Kamara (Phone number [phone]) Past Medical History Medical History: Medical History (Last Updated 06/19/18 @ 00:14 by Quinton Larson MD) GERD (gastroesophageal reflux disease) K21.9 Hyperlipemia E78.5 Hypertension I10 Allergies No Known Allergies Allergy (Verified 05/05/18 18:13) Home Medications: Ambulatory Orders Medication Instructions Recorded Aspirin [Lo-Dose Aspirin EC] 81 mg PO DAILY 11/07/17 Atorvastatin Calcium [Lipitor] 40 mg PO QHS 11/07/17 Brimonidine Tartrate 0.2% 1 drop EACH EYE BID 11/07/17 [Brimonidine 0.2% 5Ml Bottle] Cyanocobalamin (Vitamin B-12) 1,000 mcg PO DAILY 11/07/17 [Vitamin B-12] Doxazosin Mesylate [Cardura] 2 mg PO DAILY 11/07/17 Isosorbide Mononitrate [Imdur] 30 mg PO BID 11/07/17 Metoprolol Tartrate [Lopressor 25 mg PO BID 11/07/17 (Beta [place])] Multivit-Min/Iron/Folic Acid/K 1 tab DAILY 11/07/17 [Adults Multivitamin Caplet] [place]-3 Fatty Acids/Fish Oil [Fish 1 each PO DAILY 11/07/17 Oil 1,000 mg Capsule] Sertraline HCl [Zoloft] 200 mg PO DAILY 11/07/17 Ticagrelor [Brilinta] 90 mg PO BID 11/07/17 Vitamin E 400 unit PO DAILY 11/07/17 Hydrocodone Bitart/Apap 5-325 1 - 2 tablet PO Q4H PRN PRN 3 Days 05/05/18 [Zephyr 5MG-325MG] #12 tablet Surgical History: - - Two Stents in coronary artery Lives: With Family Smoking Status: Former smoker Alcohol: Occasional - *Family History Paternal Family History: Family History (Last Updated 06/19/18 @ 00:16 by Quinton Larson MD) Father Myocardial infarction Sister Hx of CABG Review of Systems Constitutional: Denies: Chills, Fever, Weight Change HEENT: Reports: Head Aches. Denies: Sinus Congestion, Sinus Drainage Cardiovascular: Reports: Chest Pain. Denies: Palpitations Respiratory: Denies: Cough, Shortness of breath at rest, Sputum production Gastrointestinal: Denies: Abdominal Pain, Nausea, Vomiting Genitourinary: Denies: Dysuria Musculoskeletal: Denies: Joint Pain, Joint Tenderness Skin: Denies: Rash, Wounds Neurological: Denies: Numbness, Tingling, Focal weakness Psychiatric: Denies: Anxiety, Depression, Homicidal Ideations, Suicidal Ideations Hematologic/ Lymphatic: Denies: Easy Bruising, Easy Bleeding VTE Information - Inpt Only VTE Present on Admission: No VTE Mechan Device Prophylaxis: None VTE Pharm Prophylaxis ordered?: Yes Patient Problems: Active and Suspected Problems (Last Updated 06/19/18 @ 00:14 by Quinton Larson MD) Chest pain (Acute) - Physical Exam General: Alert, Oriented x3, Cooperative HEENT: Atraumatic, PERRLA, EOMI, Normocephalic Neck: Supple, No JVD, Negative Carotid Bruits Lungs: Clear to auscultation, Normal air movement Cardiovascular: Regular rate, No murmurs Abdomen: Bowel Sounds Present, Soft, Non Tender Extremities: No edema, Capillary Refill Less than 3 Seconds Skin: No rashes, No breakdown Musculoskeletal: No Tenderness to Palpation of Joints or Extremities Neurological: Cranial nerves II-XII grossly intact Psych/Mental Status: Normal Affect, Appropriate Vital Signs Temp Pulse Resp BP Pulse Ox 98.0 F 87 16 119/72 96 06/18/18 21:53 06/18/18 23:00 06/18/18 23:00 06/18/18 23:00 06/18/18 23:00 Oxygen Delivery Method Room Air Weight: 90.4 kg Body Mass Index (BMI) 31.1 Laboratory Tests Past 24 Hrs 06/18/18 06/18/18 22:25 22:25 WBC 7.1 RBC 4.43 L Hgb 12.9 L Hct 39.4 L MCV 88.9 MCH 29.1 MCHC 32.7 RDW 15.8 H RDW Differential 51.1 H Plt Count 103 L MPV 12.1 H Immature Gran % (Auto) 0.100 Neut % (Auto) 72.8 H Lymph % (Auto) 18.0 L Hayes % (Auto) 8.6 Eos % (Auto) 0.4 Baso % (Auto) 0.1 Absolute Neuts (auto) 5.1 Absolute Lymphs (auto) 1.27 Total Counted Not Reportable Sodium 140 Potassium 3.6 Chloride 106 Carbon Dioxide 27.0 Anion Gap 7 BUN 19 H Creatinine 0.76 Estim Creat Clear Calc 64.26 Est GFR (MDRD) Af Amer 131 Est GFR (MDRD) Non-Af 108 BUN/Creatinine Ratio 25.1 H Glucose 138 H Calcium 8.6 Troponin I < 0.015 Assessment/Plan All Active Problems (Last Updated 06/19/18 @ 00:14 by Quinton Larson MD) Chest pain (Acute) The patient is a 68 year old M with a significant history of CAD status post stent; hypertension; GERD; hyperlipidemia who presented with excruciating constant chest pain that started few hours before his admission. He rated his pain as a 10 out of 10 on onset. His pain was sudden onset. Patient reported that his pain started at about 9:30 PM on the day of his admission. His pain radiated to his left upper extremity. He denies any nausea vomiting or diaphoresis. His pain started whiles he was cleaning his room. In route to the emergency department he took 3 tablets of nitroglycerin which brought his pain to a 2-3 out of 10. His pain started an hour to an hour and a half after eating. Chest pain Admit to a monitored bed on PCU CXR independently reviewed shows bilateral lymphadenopathy EKG independently did not show STor T wave abnormalities Old records from outside Hospitals ordered; and from Rehab unit of our hospital ordered Received aspirin 324 mg at emergency department Home aspirin and Brilinta continued. Imdur and metoprolol continue Home high intensity statin continued. Lipid panel ordered. SL NTG 0.4 mg prn as needed for chest pain Serial cardiac enzymes Stat EKG as needed for chest pain Since he already has some blockage in his arteries stress test was ordered at this time. Consider discussing patient's case with his driver utility worker, Dr. Kamara ([phone]) Hypertension Blood pressure is fairly controlled on admission Imdur and metoprolol continued. Trend blood pressures and titrate blood pressure medication as necessary. Depression Zoloft continued. DVT prophylaxis Lovenox subcutaneous ordered. Code Visit OBSV E&M: 77076 Initial observation care L3
--- NOTE | 2018-06-18 23:29 | ED.RN ---
TALKED TO A LADY FROM THE TRANSFER CENTER AT THE [facility]. SHE STATED THAT THEY ARE NOT TAKING ANY TRANSFERS TONIGHT AND IT IS OKAY TO MEDICALLY ADMIT THIS PT TO OUR HOSPITAL.
[2018-06-19] VITALS (8 sets, daily range): BP systolic 121–137; BP diastolic 66–76; PULSE 69–90; RESP 16–18; TEMP 36.6–36.8; O2SAT 94–97; BMI 30.4; BMI 30.5
--- NOTE | 2018-06-19 00:08 | EKG12_ITS ---
Test Reason : PCU ADMIT Blood Pressure : / mmHG Vent. Rate : 082 BPM Atrial Rate : 082 BPM P-R Int : 170 ms QRS Dur : 090 ms QT Int : 376 ms P-R-T Axes : 051 -26 044 degrees QTc Int : 439 ms Normal sinus rhythm Normal ECG When compared with ECG of 18-JUN-2018 21:55, MANUAL COMPARISON REQUIRED, DATA IS UNCONFIRMED Confirmed by BELA SUH, ALICIA ([id number]), medical transcription editor ANTHONY GRAY ([id number]) on 06/25/2018 2:33:00 PM Referred By: GRISEL Confirmed By:ALICIA CRAMER MD
--- NOTE | 2018-06-19 04:59 | HP.PCM_ITS ---
Problem List (1) Chest pain Status: Acute History of Present Illness Date of Admission: 06/18/18 Chief Complaint: Chest pain Patient was seen and examined on 06/18 2018 about 11:25 PM. Previous notes was accidentally cancelled. The patient is a 68 year old M with a significant history of CAD status post stent; hypertension; GERD; hypercholesterolemia who presents with excruciating sudden onset chest pain that started while cleaning his bedroom. His pain radiated to his left shoulder and to his left arm. He describes his pain as aching. Associated with symptoms was headache. His daughter checked his pulse at that time and his pulse checked 3 times was severely elevated. On his way to the hospital patient received nitroglycerin which helped with his pain. He denies any aggravating factor for his pain. He denies any nausea; vomiting or diaphoresis. His chest pain started about an hour; to an hour and a half after eating. His pain started about 30 minutes prior to arrival at the emergency department. In August 2017 patient had 2 stents placed in artery in the back of his heart (?PDA). He reported that at that time he had 98% blockage in a small artery that could not be stented. He reports that the artery in front of his heart (? LAD) had 40-45% blockage. His catheterization procedure was done at [facility]; in [place]. His cardiology is at the [facility] at [place] ([facility]). His chair springer name is Dr. Kamara ( ) Patient reported that he had a cardiac rehab at our hospital ([facility]) Patient reports that his chest pain is similar to his previous chest pain that required stents. Importantly, he reported that he has gallstones and he has scheduled cholecystectomy in August 2018. Past Medical History Medical History: Medical History (Last Updated 06/19/18 @ 00:14 by Quinton Larson MD) GERD (gastroesophageal reflux disease) K21.9 Hyperlipemia E78.5 Hypertension I10 Allergies No Known Allergies Allergy (Verified 06/19/18 00:45) Home Medications: Ambulatory Orders Medication Instructions Recorded Aspirin [Lo-Dose Aspirin EC] 81 mg PO DAILY 11/07/17 Atorvastatin Calcium [Lipitor] 40 mg PO QHS 11/07/17 Brimonidine Tartrate 0.2% 1 drop EACH EYE BID 11/07/17 [Brimonidine 0.2% 5Ml Bottle] Cyanocobalamin (Vitamin B-12) 1,000 mcg PO DAILY 11/07/17 [Vitamin B-12] Doxazosin Mesylate [Cardura] 4 mg PO DAILY 11/07/17 Isosorbide Mononitrate [Imdur] 60 mg PO DAILY 11/07/17 Metoprolol Tartrate [Lopressor 25 mg PO BID 11/07/17 (Beta [place])] Multivit-Min/Iron/Folic Acid/K 1 tab DAILY 11/07/17 [Adults Multivitamin Caplet] [place]-3 Fatty Acids/Fish Oil [Fish 1 each PO DAILY 11/07/17 Oil 1,000 mg Capsule] Sertraline HCl [Zoloft] 200 mg PO QHS 11/07/17 Ticagrelor [Brilinta] 90 mg PO BID 11/07/17 Vitamin E 400 unit PO DAILY 11/07/17 Omeprazole [Prilosec] 20 mg PO DAILY 06/19/18 busPIRone [Buspar] 5 mg PO DAILY 06/19/18 Surgical History: - - Stented coronaries Lives: With Family Smoking Status: Former smoker Alcohol: Occasional - *Family History Paternal Family History: Family History (Last Updated 06/19/18 @ 00:16 by Quinton Larson MD) Father Myocardial infarction Sister Hx of CABG Review of Systems Constitutional: Denies: Chills, Fever, Weight Change HEENT: Denies: Head Aches, Sinus Congestion, Sinus Drainage Cardiovascular: Reports: Chest Pain. Denies: Palpitations Respiratory: Denies: Cough, Shortness of breath at rest, Sputum production Gastrointestinal: Denies: Abdominal Pain, Nausea, Vomiting Genitourinary: Denies: Dysuria Musculoskeletal: Denies: Joint Pain, Joint Tenderness Skin: Denies: Rash, Wounds Neurological: Denies: Numbness, Tingling, Focal weakness Psychiatric: Denies: Anxiety, Depression, Homicidal Ideations, Suicidal Ideations Hematologic/ Lymphatic: Denies: Easy Bruising, Easy Bleeding VTE Information - Inpt Only VTE Present on Admission: No VTE Mechan Device Prophylaxis: None VTE Pharm Prophylaxis ordered?: Yes Patient Problems: Active and Suspected Problems (Last Updated 06/19/18 @ 00:14 by Quinton Larson MD) Chest pain (Acute) - Physical Exam General: Alert, Oriented x3, Cooperative HEENT: Atraumatic, PERRLA, EOMI, Normocephalic Neck: Supple, No JVD, Negative Carotid Bruits Lungs: Clear to auscultation, Normal air movement Cardiovascular: Regular rate, No murmurs Abdomen: Bowel Sounds Present, Soft, Non Tender Extremities: No edema, Capillary Refill Less than 3 Seconds Skin: No rashes, No breakdown Musculoskeletal: No Tenderness to Palpation of Joints or Extremities Neurological: Cranial nerves II-XII grossly intact Psych/Mental Status: Normal Affect, Appropriate Vital Signs Temp Pulse Resp BP Pulse Ox 97.9 F 81 16 121/71 H 97 06/19/18 00:45 06/19/18 03:09 06/19/18 00:45 06/19/18 00:45 06/19/18 00:45 Oxygen Delivery Method Room Air Weight: 88.3 kg Body Mass Index (BMI) 30.4 Laboratory Tests Past 24 Hrs 06/18/18 06/18/18 06/19/18 22:25 22:25 01:42 WBC 7.1 RBC 4.43 L Hgb 12.9 L Hct 39.4 L MCV 88.9 MCH 29.1 MCHC 32.7 RDW 15.8 H RDW Differential 51.1 H Plt Count 103 L MPV 12.1 H Immature Gran % (Auto) 0.100 Neut % (Auto) 72.8 H Lymph % (Auto) 18.0 L [place] % (Auto) 8.6 Eos % (Auto) 0.4 Baso % (Auto) 0.1 Absolute Neuts (auto) 5.1 Absolute Lymphs (auto) 1.27 Total Counted Not Reportable Sodium 140 Potassium 3.6 Chloride 106 Carbon Dioxide 27.0 Anion Gap 7 BUN 19 H Creatinine 0.76 Estim Creat Clear Calc 64.26 Est GFR (MDRD) Af Amer 131 Est GFR (MDRD) Non-Af 108 BUN/Creatinine Ratio 25.1 H Glucose 138 H Calcium 8.6 Troponin I < 0.015 < 0.015 Assessment/Plan All Active Problems (Last Updated 06/19/18 @ 00:14 by Quinton Larson MD) Chest pain (Acute) The patient is a 68 year old M with a significant history of CAD status post stent; hypertension; GERD; hypercholesterolemia who presents with excruciating sudden onset chest pain in the setting of known occluded coronary arteries. Chest pain Admit to a monitored bed on PCU CXR independently reviewed shows mediastinal lymphadenopathy; with no other conspicuous acute cardiopulmonary process EKG independently reviewed did not show any ST or T wave abnormalities. Received 324 mg of aspirin at emergency department. ASA 81 mg p.o. daily SL NTG 0.4 mg prn as needed for chest pain High intensity statin continued. Imdur and metoprolol continued. Serial cardiac enzymes Stat EKG as needed for chest pain Lipid panel ordered. Troponin unremarkable at admission; trend. Because patient already had occluded vessels on previous catheterization that could not be stented; stress test was not ordered. Patient reports compliance with dual antiplatelet therapy of aspirin and Brilinta. Consider discussing patient condition with his known chair springer Dr. Kamara ( ) Order to obtain records from [facility]; and cardiac rehab at our hospital ordered. Hypertension Blood pressure fairly controlled on admission Imdur and metoprolol continued. GERD Omeprazole continued. BPH Cardura ordered. Depression/Anxiety Zoloft continued. Home buspar dosage yet to be confirmed. Continue at lowest dosage for now. DVT prophylaxis Subcutaneous Lovenox ordered. Code Visit OBSV E&M: 02438 Initial observation care L3
[2018-06-19 05:37] LABS: Anion Gap 8 (5-15); BUN 17 mg/dL (7-18); BUN/Creat Ratio 24.6 RATIO (10-20); Calcium,Total 8.5 mg/dL (8.5-10.1); Chloride 107 mmol/L (98-107); Cholesterol 88 mg/dL (200); Creatinine, Serum 0.69 mg/dL (0.70-1.30); EST Glomerular Filtration Rate 120 mL/min (>60); Est Glom Filt Rate - Afr Amer 145 mL/min (>60); Estimated Creatinine Clearance 64.26 ml/min; Glucose 111 mg/dL (74-106); High Density Lipoprotein 32 mg/dL; Potassium 4.1 mmol/L (3.5-5.1); Sodium Level 141 mmol/L (136-145); Triglycerides 81 mg/dL; Very Low Density Lipoprotein 16 mg/dL (5-40)
[2018-06-19] MEDS: TICAGRELOR 90 MG TABLET PO (10:59)
[2018-06-19] MEDS: Isosorbide Mononitrate 30 MG Tablet PO (10:59)
[2018-06-19] MEDS: Metoprolol Tartrate 25 MG Tablet PO (10:59)
[2018-06-19] MEDS: Aspirin E.C. 81 MG Tablet PO (10:59)
[2018-06-19] MEDS: Omega-3 Acid Ethyl Esters 1 GM Capsule PO (11:00)
[2018-06-19] MEDS: Vitamin E 400 UNITS Capsule PO (11:00)
[2018-06-19] MEDS: Sertraline 100 MG Tablet 200 MG PO (11:00)
[2018-06-19] MEDS: Cyanocobalamin 500 MCG Tablet 1000 MCG PO (11:00)
--- NOTE | 2018-06-19 11:07 | CASEMGMT ---
[facility] admission and clinicals sent and message left at this time. Edilberto AMADOR CM
[2018-06-19] MEDS: BRIMONIDINE 0.2% 5ML BOTTLE 1 DRP EACH EYE (11:22)
--- NOTE | 2018-06-19 11:26 | DCINST_ITS ---
- Discharge Diagnoses Current Active Problems: Current Active and Chronic Problems (Last Updated 06/19/18 @ 00:14 by Quinton Larson MD) Chest pain (Acute) You will use the following diet at home:: Cardiac Your liquids should be the consistency of: Regular/Thin Discharge Activity: Return to Normal Activity Additional Instructions: Resume cardiac rehab. Allergies/Adverse Reactions: Allergies No Known Allergies Allergy (Verified 06/19/18 00:45) Medications to take at Discharge Aspirin [Lo-Dose Aspirin EC] 81 mg PO DAILY 11/07/17 Atorvastatin Calcium [Lipitor] 40 mg PO QHS 11/07/17 Brimonidine Tartrate 0.2% [Brimonidine 0.2% 5Ml Bottle] 1 drop EACH EYE BID 11/07/17 Cyanocobalamin (Vitamin B-12) [Vitamin B-12] 1,000 mcg PO DAILY 11/07/17 Doxazosin Mesylate [Cardura] 4 mg PO DAILY 11/07/17 Isosorbide Mononitrate [Imdur] 60 mg PO DAILY 11/07/17 Metoprolol Tartrate [Lopressor (beta cindy)] 25 mg PO BID 11/07/17 Multivit-Min/Iron/Folic Acid/K [Adults Multivitamin Caplet] 1 tab DAILY 11/07/17 [place]-3 Fatty Acids/Fish Oil [Fish Oil 1,000 mg Capsule] 1 each PO DAILY 11/07/17 Sertraline HCl [Zoloft] 200 mg PO QHS 11/07/17 Ticagrelor [Brilinta] 90 mg PO BID 11/07/17 Vitamin E 400 unit PO DAILY 11/07/17 Omeprazole [Prilosec] 20 mg PO DAILY 06/19/18 Ranolazine [Ranexa] 500 mg PO BID #60 tablet 06/19/18 busPIRone [Buspar] 5 mg PO DAILY 06/19/18 The following prescriptions were given: Ranolazine [Ranexa] 500 mg PO BID #60 tablet Primary Care Physician: [facility] [Primary Care Provider] - Please follow up with your Primary Care Physician in: 2 weeks Test Results: Test results from this visit will be discussed in further detail at your follow- up appointment, if applicable. Please Follow Up With: [place] [facility] When: 5-7 days Proposed Discharge Date: 06/19/18
[2018-06-19] MEDS: Pantoprazole Sodium 20 MG Tablet PO (11:27)
--- NOTE | 2018-06-19 16:31 | PCM.DC.SUM ---
<Adán Guillaume - Last Filed: 06/19/18 16:31> Discharge Date and Diagnosis Date of Admission: 06/18/18 Date of Discharge: 06/19/18 - Primary Discharge Diagnosis Chest pain - angina Known CAD HTN HLD GERD BPH Depression/Anxiety Hospital Course and Treatment Imaging Results: RAD/Chest PA and Lateral IMPRESSION: No acute cardiopulmonary findings. Negative for major consolidation, focal atelectasis, pleural effusion or cardiomegaly. Operations: None Procedures: None Summary of Care Provided: Hospital course: The patient is a 68 year old M with PMHx as above, notably with recent cath earlier this year per the [place] and [facility] with 2 stents placed and further widowmaker (reported per pt) 45% stenosis not stented and another unknown artery with 98% stenosis who has been in cardiac rehab here at [facility], who presented to the ER with severe CP while cleaning his bedroom radiating to the left shoulder. He had relief from nitro. He was brought to the ER and had negative EKG and troponin. He was admitted to the PCU on tele. He had no events overnight. Chest pain was resolved completely the following morning. I attempted to contact his Blind Eyeletter at the [place] unsuccessfully. Cardiology was called here and they advised increasing imdur to 60 BID. This was ordered at [place]. Ranexa was not affordable. He was discharged home in stable condition. He was advised to follow up with his clicking machine operator and PCP in 1-2 weeks. This patient was seen by Adán Guillaume PA-C under the supervision of Doctor Etienne. [] - Physical Exam General: Alert, Oriented x3, Cooperative HEENT: Atraumatic, PERRLA, EOMI, Normocephalic Neck: Supple, No JVD, Negative Carotid Bruits Lungs: Clear to auscultation, Normal air movement Cardiovascular: Regular rate, No murmurs Abdomen: Bowel Sounds Present, Soft, Non Tender Extremities: No edema, Capillary Refill Less than 3 Seconds Skin: No rashes, No breakdown Musculoskeletal: No Tenderness to Palpation of Joints or Extremities Neurological: Cranial nerves II-XII grossly intact Psych/Mental Status: Normal Affect, Appropriate Vital Signs Temp Pulse Resp BP Pulse Ox 97.8 F 69 16 128/73 H 96 06/19/18 10:39 06/19/18 10:59 06/19/18 10:39 06/19/18 10:39 06/19/18 10:39 Oxygen Delivery Method Room Air Weight: 194 lb 10.691 oz Body Mass Index (BMI) 30.4 Intake and Output for Last 24 Hours 06/17/18 06/18/18 06/19/18 23:59 23:59 23:59 Intake Total 0 / 0 Balance 0 / 0 Laboratory Tests Past 24 Hrs 06/18/18 06/18/18 06/19/18 22:25 22:25 01:42 WBC 7.1 RBC 4.43 L Hgb 12.9 L Hct 39.4 L MCV 88.9 MCH 29.1 MCHC 32.7 RDW 15.8 H RDW Differential 51.1 H Plt Count 103 L MPV 12.1 H Immature Gran % (Auto) 0.100 Neut % (Auto) 72.8 H Lymph % (Auto) 18.0 L [place] % (Auto) 8.6 Eos % (Auto) 0.4 Baso % (Auto) 0.1 Absolute Neuts (auto) 5.1 Absolute Lymphs (auto) 1.27 Total Counted Not Reportable Sodium 140 Potassium 3.6 Chloride 106 Carbon Dioxide 27.0 Anion Gap 7 BUN 19 H Creatinine 0.76 Estim Creat Clear Calc 64.26 Est GFR (MDRD) Af Amer 131 Est GFR (MDRD) Non-Af 108 BUN/Creatinine Ratio 25.1 H Glucose 138 H Calcium 8.6 Troponin I < 0.015 < 0.015 Triglycerides Cholesterol LDL Cholesterol VLDL Cholesterol HDL Cholesterol 06/19/18 04:46 WBC RBC Hgb Hct MCV MCH MCHC RDW RDW Differential Plt Count MPV Immature Gran % (Auto) Neut % (Auto) Lymph % (Auto) [place] % (Auto) Eos % (Auto) Baso % (Auto) Absolute Neuts (auto) Absolute Lymphs (auto) Total Counted Sodium 141 Potassium 4.1 Chloride 107 Carbon Dioxide 26.0 Anion Gap 8 BUN 17 Creatinine 0.69 L Estim Creat Clear Calc 64.26 Est GFR (MDRD) Af Amer 145 Est GFR (MDRD) Non-Af 120 BUN/Creatinine Ratio 24.6 H Glucose 111 H Calcium 8.5 Troponin I < 0.015 Triglycerides 81 Cholesterol 88 LDL Cholesterol 40 VLDL Cholesterol 16 HDL Cholesterol 32 L Discharge Diet: Low fat/ Low Cholesterol, 2000 mg Sodium Diet Discharge Activity: Return to Normal Activity Home Medications: Medications to take at Discharge Aspirin [Lo-Dose Aspirin EC] 81 mg PO DAILY 11/07/17 Atorvastatin Calcium [Lipitor] 40 mg PO QHS 11/07/17 Brimonidine Tartrate 0.2% [Brimonidine 0.2% 5Ml Bottle] 1 drop EACH EYE BID 11/07/17 Cyanocobalamin (Vitamin B-12) [Vitamin B-12] 1,000 mcg PO DAILY 11/07/17 Doxazosin Mesylate [Cardura] 4 mg PO DAILY 11/07/17 Metoprolol Tartrate [Lopressor (beta cindy)] 25 mg PO BID 11/07/17 Multivit-Min/Iron/Folic Acid/K [Adults Multivitamin Caplet] 1 tab DAILY 11/07/17 [place]-3 Fatty Acids/Fish Oil [Fish Oil 1,000 mg Capsule] 1 each PO DAILY 11/07/17 Sertraline HCl [Zoloft] 200 mg PO QHS 11/07/17 Ticagrelor [Brilinta] 90 mg PO BID 11/07/17 Vitamin E 400 unit PO DAILY 11/07/17 Isosorbide Mononitrate [Imdur] 60 mg PO BID #60 tablet 06/19/18 Omeprazole [Prilosec] 20 mg PO DAILY 06/19/18 busPIRone [Buspar] 5 mg PO DAILY 06/19/18 Following Prescrptions Were Given to Patient: Isosorbide Mononitrate [Imdur] 60 mg PO BID #60 tablet [facility] Care Physician: [facility] [Primary Care Provider] - Please follow up with your Primary Care Physician in: 2 weeks Please Follow Up With: [facility] Cardiology When: 5-7 days Disposition: Home Minutes spent on discharge:: 35 Patient Condition:: Stable Medical Necessity - Tobacco Use Smoking Status: Former smoker Meaningful Use Info Meaningful Use Diagnoses (Choose all that apply): None applicable <Ellie Etienne - Last Filed: 06/20/18 17:56> Hospital Course and Treatment None Summary of Care Provided: The patient is a 68 year old M past medical history of CAD, status post stents, follows with cardiology in the [place] in [facility]. Patient had come in with complaints of chest pain that was relieved with nitro. H EKG on admission had no acute ST-T changes. Troponins x3 were negative. Patient had no more chest pain. It was felt that patient will be better served by following up with his primary clicking machine operator. It was recommended that he called to make a follow-up appointment within 2 weeks. He was discharged on an increased dose of Imdur to 60 mg twice daily Subjective: Patient was seen and examined on the day of discharge. No more having chest pain. Denies any dizziness shortness of breath. - Physical Exam Vital Signs Temp Pulse Resp BP Pulse Ox 97.8 F 69 16 128/73 H 96 06/19/18 10:39 06/19/18 10:59 06/19/18 10:39 06/19/18 10:39 06/19/18 10:39 Oxygen Delivery Method Room Air Weight: 88.3 kg Body Mass Index (BMI) 30.4 Intake and Output for Last 24 Hours 06/18/18 06/19/18 06/20/18 23:59 23:59 23:59 Intake Total 0 / 0 Balance 0 / 0 Code Visit Inpatient E&M: 76118 Disch Hosp
--- NOTE | 2018-06-19 16:38 | DS.PCM_ITS ---
<Adán Guillaume - Last Filed: 06/19/18 16:31> Discharge Date and Diagnosis Date of Admission: 06/18/18 Date of Discharge: 06/19/18 - Primary Discharge Diagnosis Chest pain - angina Known CAD HTN HLD GERD BPH Depression/Anxiety Hospital Course and Treatment Imaging Results: RAD/Chest PA and Lateral IMPRESSION: No acute cardiopulmonary findings. Negative for major consolidation, focal atelectasis, pleural effusion or cardiomegaly. Operations: None Procedures: None Summary of Care Provided: Hospital course: The patient is a 68 year old M with PMHx as above, notably with recent cath earlier this year per the [place] and [facility] with 2 stents placed and further widowmaker (reported per pt) 45% stenosis not stented and another unknown artery with 98% stenosis who has been in cardiac rehab here at [facility], who presented to the ER with severe CP while cleaning his bedroom radiating to the left shoulder. He had relief from nitro. He was brought to the ER and had negative EKG and troponin. He was admitted to the PCU on tele. He had no events overnight. Chest pain was resolved completely the following morning. I attempted to contact his Life Science Technical Officer at the [place] unsuccessfully. Cardiology was called here and they advised increasing imdur to 60 BID. This was ordered at [place]. Ranexa was not affordable. He was discharged home in stable condition. He was advised to follow up with his etcher machine and PCP in 1-2 weeks. This patient was seen by Adán Guillaume PA-C under the supervision of Doctor Etienne. [] - Physical Exam General: Alert, Oriented x3, Cooperative HEENT: Atraumatic, PERRLA, EOMI, Normocephalic Neck: Supple, No JVD, Negative Carotid Bruits Lungs: Clear to auscultation, Normal air movement Cardiovascular: Regular rate, No murmurs Abdomen: Bowel Sounds Present, Soft, Non Tender Extremities: No edema, Capillary Refill Less than 3 Seconds Skin: No rashes, No breakdown Musculoskeletal: No Tenderness to Palpation of Joints or Extremities Neurological: Cranial nerves II-XII grossly intact Psych/Mental Status: Normal Affect, Appropriate Vital Signs Temp Pulse Resp BP Pulse Ox 97.8 F 69 16 128/73 H 96 06/19/18 10:39 06/19/18 10:59 06/19/18 10:39 06/19/18 10:39 06/19/18 10:39 Oxygen Delivery Method Room Air Weight: 194 lb 10.691 oz Body Mass Index (BMI) 30.4 Intake and Output for Last 24 Hours 06/17/18 06/18/18 06/19/18 23:59 23:59 23:59 Intake Total 0 / 0 Balance 0 / 0 Laboratory Tests Past 24 Hrs 06/18/18 06/18/18 06/19/18 22:25 22:25 01:42 WBC 7.1 RBC 4.43 L Hgb 12.9 L Hct 39.4 L MCV 88.9 MCH 29.1 MCHC 32.7 RDW 15.8 H RDW Differential 51.1 H Plt Count 103 L MPV 12.1 H Immature Gran % (Auto) 0.100 Neut % (Auto) 72.8 H Lymph % (Auto) 18.0 L [place] % (Auto) 8.6 Eos % (Auto) 0.4 Baso % (Auto) 0.1 Absolute Neuts (auto) 5.1 Absolute Lymphs (auto) 1.27 Total Counted Not Reportable Sodium 140 Potassium 3.6 Chloride 106 Carbon Dioxide 27.0 Anion Gap 7 BUN 19 H Creatinine 0.76 Estim Creat Clear Calc 64.26 Est GFR (MDRD) Af Amer 131 Est GFR (MDRD) Non-Af 108 BUN/Creatinine Ratio 25.1 H Glucose 138 H Calcium 8.6 Troponin I < 0.015 < 0.015 Triglycerides Cholesterol LDL Cholesterol VLDL Cholesterol HDL Cholesterol 06/19/18 04:46 WBC RBC Hgb Hct MCV MCH MCHC RDW RDW Differential Plt Count MPV Immature Gran % (Auto) Neut % (Auto) Lymph % (Auto) [place] % (Auto) Eos % (Auto) Baso % (Auto) Absolute Neuts (auto) Absolute Lymphs (auto) Total Counted Sodium 141 Potassium 4.1 Chloride 107 Carbon Dioxide 26.0 Anion Gap 8 BUN 17 Creatinine 0.69 L Estim Creat Clear Calc 64.26 Est GFR (MDRD) Af Amer 145 Est GFR (MDRD) Non-Af 120 BUN/Creatinine Ratio 24.6 H Glucose 111 H Calcium 8.5 Troponin I < 0.015 Triglycerides 81 Cholesterol 88 LDL Cholesterol 40 VLDL Cholesterol 16 HDL Cholesterol 32 L Discharge Diet: Low fat/ Low Cholesterol, 2000 mg Sodium Diet Discharge Activity: Return to Normal Activity Home Medications: Medications to take at Discharge Aspirin [Lo-Dose Aspirin EC] 81 mg PO DAILY 11/07/17 Atorvastatin Calcium [Lipitor] 40 mg PO QHS 11/07/17 Brimonidine Tartrate 0.2% [Brimonidine 0.2% 5Ml Bottle] 1 drop EACH EYE BID 11/07/17 Cyanocobalamin (Vitamin B-12) [Vitamin B-12] 1,000 mcg PO DAILY 11/07/17 Doxazosin Mesylate [Cardura] 4 mg PO DAILY 11/07/17 Metoprolol Tartrate [Lopressor (beta cindy)] 25 mg PO BID 11/07/17 Multivit-Min/Iron/Folic Acid/K [Adults Multivitamin Caplet] 1 tab DAILY 11/07/17 [place]-3 Fatty Acids/Fish Oil [Fish Oil 1,000 mg Capsule] 1 each PO DAILY 11/07/17 Sertraline HCl [Zoloft] 200 mg PO QHS 11/07/17 Ticagrelor [Brilinta] 90 mg PO BID 11/07/17 Vitamin E 400 unit PO DAILY 11/07/17 Isosorbide Mononitrate [Imdur] 60 mg PO BID #60 tablet 06/19/18 Omeprazole [Prilosec] 20 mg PO DAILY 06/19/18 busPIRone [Buspar] 5 mg PO DAILY 06/19/18 Following Prescrptions Were Given to Patient: Isosorbide Mononitrate [Imdur] 60 mg PO BID #60 tablet [facility] Physician: [facility] [Primary Care Provider] - Please follow up with your Primary Care Physician in: 2 weeks Please Follow Up With: [facility] Cardiology When: 5-7 days Disposition: Home Minutes spent on discharge:: 35 Patient Condition:: Stable Medical Necessity - Tobacco Use Smoking Status: Former smoker Meaningful Use Info Meaningful Use Diagnoses (Choose all that apply): None applicable <Ellie Etienne - Last Filed: 06/20/18 17:56> Hospital Course and Treatment None Summary of Care Provided: The patient is a 68 year old M past medical history of CAD, status post stents, follows with cardiology in the [place] in [facility]. Patient had come in with complaints of chest pain that was relieved with nitro. H EKG on admission had no acute ST-T changes. Troponins x3 were negative. Patient had no more chest pain. It was felt that patient will be better served by following up with his primary etcher machine. It was recommended that he called to make a follow-up appointment within 2 weeks. He was discharged on an increased dose of Imdur to 60 mg twice daily Subjective: Patient was seen and examined on the day of discharge. No more having chest pain. Denies any dizziness shortness of breath. - Physical Exam Vital Signs Temp Pulse Resp BP Pulse Ox 97.8 F 69 16 128/73 H 96 06/19/18 10:39 06/19/18 10:59 06/19/18 10:39 06/19/18 10:39 06/19/18 10:39 Oxygen Delivery Method Room Air Weight: 88.3 kg Body Mass Index (BMI) 30.4 Intake and Output for Last 24 Hours 06/18/18 06/19/18 06/20/18 23:59 23:59 23:59 Intake Total 0 / 0 Balance 0 / 0 Code Visit Inpatient E&M: 06260 Disch Hosp
== END 2018-06-19 11:25 | disposition home or self-care (01) ==
LOC: ED 23:19 → PCU 23:57
PROVIDERS: Admitting Provider Hospitalist; Emergency Provider Emergency Medicine; Visit Provider Internal Medicine
DX: R07.89 Other chest pain (principal); I25.10 Atherosclerotic heart disease of native coronary artery without angina pectoris; I10 Essential (primary) hypertension; K21.9 Gastro-esophageal reflux disease without esophagitis; E78.5 Hyperlipidemia, unspecified; F41.9 Anxiety disorder, unspecified; F32.9 Major depressive disorder, single episode, unspecified; N40.0 Benign prostatic hyperplasia without lower urinary tract symptoms; Z95.5 Presence of coronary angioplasty implant and graft; Z87.891 Personal history of nicotine dependence; Z79.899 Other long term (current) drug therapy; Z79.82 Long term (current) use of aspirin
CPT/HCPCS: 36415; 71046; 80048; 80061; 84484; 85025; 93005; 99218; 99283; A4216; G0378

== ENCOUNTER 2018-08-31 23:12 | Observation (INO) | payer MEDICARE, OTHER, SELFPAY ==
[2018-08-31 23:13] VITALS: BP 120/85; PULSE 71; RESP 16; TEMP 36.6; O2SAT 97; BMI 29.7
[2018-08-31 23:22] VITALS: O2SAT 97
--- NOTE | 2018-08-31 23:22 | EKG12_ITS ---
Test Reason : CP Blood Pressure : / mmHG Vent. Rate : 152 BPM Atrial Rate : 122 BPM P-R Int : 000 ms QRS Dur : 086 ms QT Int : 298 ms P-R-T Axes : 000 -24 054 degrees QTc Int : 473 ms Atrial fibrillation with rapid ventricular response Inferior infarct , age undetermined Abnormal ECG Confirmed by BELA SUH, ALICIA ([id number]), editor publications ANTHONY GRAY ([id number]) on 09/02/2018 5:11:30 PM Referred By: Quinton Larson Confirmed By:ALICIA CRAMER MD
--- NOTE | 2018-08-31 23:22 | RAD_ITS ---
STUDY: X-RAY CHEST REASON FOR EXAM: Male, 68 years old. Chest pain TECHNIQUE: Single AP portable view of the chest. COMPARISON: None. FINDINGS: The lungs are clear and expanded. There is no demonstrated pleural abnormality. Normal size heart. Normal mediastinum and tata. Normal visualized pulmonary arteries. Normal visualized aortic arch and descending thoracic aorta. Normal visualized thoracic spine. There is degenerative osteoarthritis of the bilateral shoulders. There is no demonstrated abnormality of the visualized soft tissue structures of the upper abdomen. RAD/Chest 1 View (Portable) IMPRESSION: Degenerative changes, as described above. No demonstrated acute cardiopulmonary process. Electronically Signed: Dre You MD at 0:24 EST Tel , Service support ,
--- NOTE | 2018-08-31 23:26 | ED.VISSUMM ---
- ER Visit Summary Date of Service: 08/31/18 Chief Complaint: Chest pain History of Present Illness: The patient is a 68 M who presents with chest pain. Started 1 hour ago. He stated he was sitting on his grandsons bed when this started. He describes aching across his chest and radiates to the left arm. He states nothing makes it worse. He initially took 3 nitroglycerin which she states initially provided him mild relief but now it is worse. He felt presyncopal like he was going to pass out. He has no history of atrial fibrillation. States he had a stress test 3 months ago that was unremarkable. He had a cardiac catheterization earlier in the year at the [place]. He states he had 2 stents placed. He states that he still has a 45% blockage in the LAD which could not be stented. Physical Examination: Vital signs reviewed. HEENT exam unremarkable. Heart is irregularly irregular and tachycardic without murmurs. Lungs are clear to auscultation. Abdomen is soft and nontender. Extremities reveal no edema. Peripheral pulses are equal. Skin exam normal. Neurologic exam normal. Test Results: [] Emergency Department Course and Treatment: [] Treatment Plan: [] Disposition: [] Impression: [] This note was generated with [employer]Star software. It may contain incorrect words, spelling, and punctuation that were not noted in review of the chart prior to signing <Vasquez Andrews - Last Filed: 08/31/18 23:26> - ER Visit Summary Date of Service: 09/01/18 Test Results: CBC chemistry and troponin found to be unremarkable. EKG initially shows atrial fibrillation with rapid ventricular rate in the 150s. Subsequent EKG shows cardioversion back to normal sinus rhythm with no ischemic changes. Emergency Department Course and Treatment: Patient presented for evaluation secondary to chest pain. He was found to be in atrial fibrillation with a rapid ventricular rate. He was cardioverted with a single dose of Cardizem. His cardiac enzyme was found to be negative. I reviewed the patient's records, he does not have a prior history of atrial fibrillation. I believe he requires admission. He will be admitted under the hospitalist. Disposition: Admission Impression: 1. New onset A. fib with RVR 2. IV antiarrhythmic therapy Critical care time 35 minutes This note was generated with [employer] software. It may contain incorrect words, spelling, and punctuation that were not noted in review of the chart prior to signing <Anjum Goyal - Last Filed: 09/01/18 00:45> ED Disposition <Vasquez Andrews - Last Filed: 08/31/18 23:26> <Anjum Goyal - Last Filed: 09/01/18 00:45> - Plan for ED Patient: Chief Complaint: Chest Pain [facility] [[facility]] -
[2018-08-31] MEDS: dilTIAZem 25 MG/5 ML Vial 20 MG IV BOLUS (23:27)
[2018-08-31] MEDS: Aspirin 81 MG TAB.CHEW 324 MG PO (23:28)
--- NOTE | 2018-08-31 23:29 | ED.DCSUM_ITS ---
- ER Visit Summary Date of Service: 08/31/18 Chief Complaint: Chest pain History of Present Illness: The patient is a 68 M who presents with chest pain. Started 1 hour ago. He stated he was sitting on his grandsons bed when this started. He describes aching across his chest and radiates to the left arm. He states nothing makes it worse. He initially took 3 nitroglycerin which she states initially provided him mild relief but now it is worse. He felt presyncopal like he was going to pass out. He has no history of atrial fibrillation. States he had a stress test 3 months ago that was unremarkable. He had a cardiac catheterization earlier in the year at the [place]. He states he had 2 stents placed. He states that he still has a 45% blockage in the LAD which could not be stented. Physical Examination: Vital signs reviewed. HEENT exam unremarkable. Heart is irregularly irregular and tachycardic without murmurs. Lungs are clear to auscultation. Abdomen is soft and nontender. Extremities reveal no edema. Peripheral pulses are equal. Skin exam normal. Neurologic exam normal. Test Results: [] Emergency Department Course and Treatment: [] Treatment Plan: [] Disposition: [] Impression: [] This note was generated with [employer] software. It may contain incorrect words, spelling, and punctuation that were not noted in review of the chart prior to signing <Vasquez Andrews - Last Filed: 08/31/18 23:26> - ER Visit Summary Date of Service: 09/01/18 Test Results: CBC chemistry and troponin found to be unremarkable. EKG initially shows atrial fibrillation with rapid ventricular rate in the 150s. Subsequent EKG shows cardioversion back to normal sinus rhythm with no ischemic changes. Emergency Department Course and Treatment: Patient presented for evaluation secondary to chest pain. He was found to be in atrial fibrillation with a rapid ventricular rate. He was cardioverted with a single dose of Cardizem. His cardiac enzyme was found to be negative. I reviewed the patient's records, he d oes not have a prior history of atrial fibrillation. I believe he requires admission. He will be admitted under the hospitalist. Disposition: Admission Impression: 1. New onset A. fib with RVR 2. IV antiarrhythmic therapy Critical care time 35 minutes This note was generated with [employer] software. It may contain incorrect words, spelling, and punctuation that were not noted in review of the chart prior to signing <Anjum Goyal - Last Filed: 09/01/18 00:45> ED Disposition <Vasquez Andrews - Last Filed: 08/31/18 23:26> <Anjum Goyal - Last Filed: 09/01/18 00:45> - Plan for ED Patient: Chief Complaint: Chest Pain [facility]errals: [facility] [Primary Care Provider] -
[2018-08-31 23:39] LABS: Absolute Lymphocyte Count 1.52 X10^3/ul (0.83-4.51); Absolute Neutrophil Count 5.1 X10^3/uL (2.0-7.7); Basophil# 0.02 X10^3/uL; Basophil% 0.3 % (0-1); Eosinophil# 0.02 X10^3/uL; Eosinophils% 0.3 % (0-5); Hematocrit 40.5 % (40-54); Hemoglobin 13.1 g/dl (13.0-16.5); Lymphocyte # 1.52 X10^3/ul (4.0); Lymphocyte % 20.5 % (19-41); Mean Corp Hgb Conc 32.3 g/gl (32-36); Mean Corpuscular Hgb 28.9 pg (27.0-32.0); Mean Corpuscular Volume 89.4 fL (80-94); Mean Platelet Vol. 11.7 fl (6.2-12.0); Monocyte# 0.74 X10^3/uL; Neutrophil # 5.11 X10^3/uL (2.7-7.7); Neutrophil % 68.6 % (47-70); POSITIVE COUNT NO; POSITIVE DIFFERENTIAL NO; POSITIVE MORPHOLOGY NO; Platelet Count 116 K/mm3 (150-450); RBC Distribution Width SD 51.5 fl (35.1-43.9); Red Blood Count 4.53 M/mm3 (4.6-6.2); White Blood Count 7.4 K/mm3 (4.4-11.0)
[2018-08-31 23:43] VITALS: BP 146/70; PULSE 90; RESP 22; O2SAT 97
[2018-08-31 23:54] LABS: Anion Gap 10 (5-15); BUN 14 mg/dL (7-18); BUN/Creat Ratio 21.2 RATIO (10-20); Calcium,Total 8.6 mg/dL (8.5-10.1); Chloride 109 mmol/L (98-107); Creatinine, Serum 0.66 mg/dL (0.70-1.30); EST Glomerular Filtration Rate 127 mL/min (>60); Est Glom Filt Rate - Afr Amer 154 mL/min (>60); Estimated Creatinine Clearance 64.26 ml/min; Glucose 149 mg/dL (74-106); Potassium 3.9 mmol/L (3.5-5.1); Sodium Level 142 mmol/L (136-145)
--- NOTE | 2018-08-31 23:59 | NURSING ---
TALKED TO JEZ AT THE [facility] AND FAXED OVER NOTES TO HER. SHE INFORMED ME WE CAN ADMIT PATIENT HERE UNTIL SHE SEES WHAT THEY HAVE AVAILABLE IF ANYTHING.
[2018-09-01] VITALS (17 sets, daily range): BP systolic 119–154; BP diastolic 58–88; PULSE 61–90; RESP 14–21; TEMP 36.4–36.8; O2SAT 96–98; BMI 31.3
--- NOTE | 2018-09-01 00:01 | EKG12_ITS ---
Test Reason : REPEAT Blood Pressure : / mmHG Vent. Rate : 085 BPM Atrial Rate : 085 BPM P-R Int : 182 ms QRS Dur : 088 ms QT Int : 374 ms P-R-T Axes : 038 -28 033 degrees QTc Int : 445 ms Normal sinus rhythm Normal ECG Confirmed by ALICIA CRAMER MD ([id number]), science editor ANTHONY GRAY ([id number]) on 09/02/2018 5:27:18 PM Referred By: Quinton Larson Confirmed By:ALICIA CRAMER MD
--- NOTE | 2018-09-01 00:33 | PCM.HP.STD ---
Problem List (1) Atrial fibrillation with RVR Status: Acute History of Present Illness Date of Admission: 09/01/18 Chief Complaint: chest Pain The patient is a 68 year old M with a significant history of glaucoma; CAD status post 2 stents; depression; anxiety; GERD; and BPH who presented with 1 hour history of excruciating substernal chest pain that radiated to his left arm and his left shoulder. Patient took 3 nitroglycerin that provided mild relief from his chest pain. He denied any aggravating factor. His chest pain was sudden onset and started while at rest. His chest pain is continuous. He describes chest pain as aching. He denies any nausea, vomiting or diaphoresis. But he felt lightheaded and had a feeling of almost going to pass out. Also he had a headache. At emergency department patient was found to be in A. fib with rapid ventricular response. He converted with Cardizem 20 mg IV. At the time of my evaluation patient was in sinus rhythm and he denied any chest pain. Patient was admitted at our [facility] on 06/18/2018 and was discharged on 06/19/2018. At that time he had chest pain that he think was of the same characteristics as his presenting chest pain. On his previous admission his Imdur was increased. He was supposed to be discharged on Ranexa but it was not affordable. 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 Patient reported that he had a stress test and scanning of his chest with dye (? CT scan) that was not remarkable. As stated above patient has 2 stents in his coronary. He reports that the stent was placed in an artery behind his heart. Also he reports about 90% blockage in vessels that were too small to be intervened. Also he reports about 40-50% blockage in his maker. Patient reports that he was supposed to have his gallbladder taken out. However because he was on Brilinta this was postponed. He reports that by September 2018 it will be about 1 year since his Brilinta was started so he can go off Brilinta and have a cholecystectomy. Patient is a former smoker who quit smoking about 25 years ago. His father had TX when he was in his early 60s. His mother had coronary artery disease after age 80 years. His older sister had a CABG in her mid 50s. Past Medical History Medical History: Medical History (Last Updated 06/19/18 @ 00:14 by Quinton Larson MD) GERD (gastroesophageal reflux disease) K21.9 Hyperlipemia E78.5 Hypertension I10 Allergies No Known Allergies Allergy (Verified 08/31/18 23:16) Home Medications: Ambulatory Orders Medication Instructions Recorded Aspirin [Lo-Dose Aspirin EC] 81 mg PO DAILY 11/07/17 Atorvastatin Calcium [Lipitor] 80 mg PO QHS 11/07/17 Brimonidine Tartrate 0.2% 1 drop EACH EYE BID 11/07/17 [Brimonidine 0.2% 5Ml Bottle] Cyanocobalamin (Vitamin B-12) 1,000 mcg PO DAILY 11/07/17 [Vitamin B-12] Doxazosin Mesylate [Cardura] 4 mg PO DAILY 11/07/17 Metoprolol Tartrate [Lopressor 25 mg PO BID 11/07/17 (beta cindy)] Multivit-Min/Iron/Folic Acid/K 1 tab DAILY 11/07/17 [Adults Multivitamin Caplet] [place]-3 Fatty Acids/Fish Oil [Fish 1 each PO DAILY 11/07/17 Oil 1,000 mg Capsule] Sertraline HCl [Zoloft] 200 mg PO QHS 11/07/17 Ticagrelor [Brilinta] 90 mg PO BID 11/07/17 Omeprazole [Prilosec] 20 mg PO DAILY 06/19/18 busPIRone [Buspar] 5 mg PO DAILY 06/19/18 Isosorbide Mononitrate [Imdur] 90 mg PO DAILY 08/31/18 Surgical History: - - Stented coronaries Lives: With Family Smoking Status: Former smoker Alcohol: Occasional - *Family History Maternal Family History: Family History (Last Reviewed 09/01/18 @ 01:49 by Quinton Larson MD) Father Leukemia Myocardial infarction Sister Hx of CABG Mother CAD (coronary artery disease) Review of Systems Constitutional: Denies: Chills, Fever, Weight Change HEENT: Denies: Head Aches, Sinus Congestion, Sinus Drainage Cardiovascular: Reports: Chest Pain, Light Headedness, Palpitations Respiratory: Denies: Cough, Shortness of breath at rest, Sputum production Gastrointestinal: Denies: Abdominal Pain, Nausea, Vomiting Genitourinary: Denies: Dysuria Musculoskeletal: Denies: Joint Pain, Joint Tenderness Skin: Denies: Rash, Wounds Neurological: Denies: Numbness, Tingling, Focal weakness Psychiatric: Denies: Anxiety, Depression, Homicidal Ideations, Suicidal Ideations Hematologic/ Lymphatic: Denies: Easy Bruising, Easy Bleeding VTE Information - Inpt Only VTE Present on Admission: No VTE Mechan Device Prophylaxis: None VTE Pharm Prophylaxis ordered?: No Reason prophylaxis not ordered:: Treatment Not Indicated - Patient started on therapeutic anticoagulation for A. fib. Patient Problems: Active and Suspected Problems (Last Updated 06/19/18 @ 00:14 by Quinton Larson MD) Atrial fibrillation with RVR (Acute) - Physical Exam General: Alert, Oriented x3, Cooperative HEENT: Atraumatic, PERRLA, EOMI, Normocephalic Neck: Supple, No JVD, Negative Carotid Bruits Lungs: Clear to auscultation, Normal air movement Cardiovascular: Regular rate, No murmurs Abdomen: Bowel Sounds Present, Soft, Non Tender Extremities: No edema, Capillary Refill Less than 3 Seconds Skin: No rashes, No breakdown Musculoskeletal: No Tenderness to Palpation of Joints or Extremities Neurological: Neuro grossly intact Psych/Mental Status: Normal Affect, Appropriate Vital Signs Temp Pulse Resp BP Pulse Ox 97.9 F 90 22 H 146/70 H 97 08/31/18 23:13 08/31/18 23:43 08/31/18 23:43 08/31/18 23:43 08/31/18 23:43 Oxygen Flow Rate (L/min) 2 Oxygen Delivery Method Nasal Cannula Weight: 86.183 kg Body Mass Index (BMI) 29.7 Laboratory Tests Past 24 Hrs 08/31/18 08/31/18 23:25 23:25 WBC 7.4 RBC 4.53 L Hgb 13.1 Hct 40.5 MCV 89.4 MCH 28.9 MCHC 32.3 RDW 16.0 H RDW Differential 51.5 H Plt Count 116 L MPV 11.7 Immature Gran % (Auto) 0.300 Neut % (Auto) 68.6 Lymph % (Auto) 20.5 [place] % (Auto) 10.0 Eos % (Auto) 0.3 Baso % (Auto) 0.3 Absolute Neuts (auto) 5.1 Absolute Lymphs (auto) 1.52 Total Counted Not Reportable Sodium 142 Potassium 3.9 Chloride 109 H Carbon Dioxide 23.0 Anion Gap 10 BUN 14 Creatinine 0.66 L Estim Creat Clear Calc 64.26 Est GFR (MDRD) Af Amer 154 Est GFR (MDRD) Non-Af 127 BUN/Creatinine Ratio 21.2 H Glucose 149 H Calcium 8.6 Troponin I < 0.015 Assessment/Plan All Active Problems (Last Updated 06/19/18 @ 00:14 by Quinton Larson MD) Chest pain (Acute) Atrial fibrillation with RVR (Acute) The patient is a 68 year old M with a significant history of glaucoma; former smoker; CAD status post 2 stents; depression; anxiety; GERD; and BPH who presented with recurrent chest pain but this time around he had heart racing and was found to be in A. fib with rapid ventricular response; and with relief of his chest pain after he was converted to sinus rhythm with IV Cardizem. A. fib with rapid ventricular response Admitted to PCU on telemetry Independent review of EKG showed A. fib with rapid ventricular response with ventricular rate of 152 Likely A. fib with rapid ventricular response is the cause of his chest pain. Currently converted to sinus rhythm with heart rate of 71-90. Patient is on home metoprolol. Since there is room on blood pressure and current heart rate we will titrate up his metoprolol. Check blood pressure and heart rate and titrate metoprolol as necessary. Initial troponin was negative. Serial cardiac enzymes ordered He reports that he has had an echocardiogram not too long ago. He does not know exactly when. Order to obtain records from the [place]. [id number] points (positive for age between 65-74; hypertension; vascular disease;). Lovenox 1 mg per kilogram subcutaneous x 1 ordered Check magnesium level Consult [facility] TSH ordered Lipid Panel in am. Chest pain Likely from A. fib with rapid ventricular response as stated above Admit to a monitored bed on CXR independently reviewed confirms no acute cardiopulmonary process. EKG interpretation as above ASA 81 mg p.o. daily continued SL NTG 0.4 mg prn as needed for chest pain Brilinta continued Imdur continued Metoprolol titrated up Continue high intensity statin Serial cardiac enzymes Stat EKG as needed for chest pain Depression and anxiety Zoloft and buspirone continued Glaucoma Brimonidine titrate eyedrop continued GERD PPI continued DVT prophylaxis Not indicated since patient has received Lovenox therapeutic dose for Afib Code Visit OBSV E&M: 93229 Initial observation care L3
[2018-09-01 02:11] LABS: Magnesium 2.1 mg/dL (1.6-2.6); Thyroid Stim Hormone (TSH) 3.92 uIU/mL (0.358-3.74)
[2018-09-01] MEDS: Enoxaparin 100 MG/ML Syringe 90 MG SC (02:35)
[2018-09-01 06:36] LABS: Cholesterol 79 mg/dL (200); High Density Lipoprotein 31 mg/dL; Triglycerides 59 mg/dL; Very Low Density Lipoprotein 12 mg/dL (5-40)
--- NOTE | 2018-09-01 08:24 | PCM.PN.HOSP ---
Patient Problems: Active and Suspected Problems (Last Updated 06/19/18 @ 00:14 by Quinton Larson MD) Atrial fibrillation with RVR (Acute) Subjective: Patient is a 68-year-old gentleman with multiple comorbidities including CAD who presented with chest pain. Patient was also noted to have A. fib with RVR admitted to monitored bed for further management Objective: GENERAL: cooperative HEENT: Atraumatic; moist oral mucosa EYES; Anicteric, Normal Conjunctiva NECK; supple, normal thyroid, RESPIRATORY: Diminished to auscultation bilaterally, CARDIOVASCULAR: Regular S1 S2, GI: soft, non-tender, normoactive bowel sounds, : No Renal angle tenderness; EXTREMITIES: No edema, no clubbing, no cyanosis. MUSCULOSKELETAL: No Joint Tenderness; NEURO: Awake; no lateralizing signs. SKIN: No Rash PSYCH;flat affect Vitals/I&O's: Vital Signs Temp Pulse Resp BP Pulse Ox 98.2 F 64 17 131/67 H 97 09/01/18 05:26 09/01/18 07:30 09/01/18 05:26 09/01/18 05:26 09/01/18 05:26 Oxygen Flow Rate (L/min) 2 Oxygen Delivery Method Room Air Weight: 90.7 kg Body Mass Index (BMI) 31.3 Laboratory Results 08/31/18 23:25: WBC 7.4, RBC 4.53 L, Hgb 13.1, Hct 40.5, MCV 89.4, MCH 28.9, MCHC 32.3, RDW 16.0 H, RDW Differential 51.5 H, Plt Count 116 L, MPV 11.7, Immature Gran % (Auto) 0.300, Neut % (Auto) 68.6, Lymph % (Auto) 20.5, Reynolds % (Auto) 10.0, Eos % (Auto) 0.3, Baso % (Auto) 0.3, Absolute Neuts (auto) 5.1, Absolute Lymphs (auto) 1.52, Total Counted Not Reportable 08/31/18 23:25: Sodium 142, Potassium 3.9, Chloride 109 H, Carbon Dioxide 23.0, Anion Gap 10, BUN 14, Creatinine 0.66 L, Estim Creat Clear Calc 64.26, Est GFR (MDRD) Af Amer 154, Est GFR (MDRD) Non-Af 127, BUN/Creatinine Ratio 21.2 H, Glucose 149 H, Calcium 8.6, Troponin I < 0.015 08/31/18 23:25: Magnesium 2.1, TSH 3.92 H 09/01/18 02:25: Troponin I 0.026 09/01/18 05:25: Troponin I 0.029, Triglycerides 59, Cholesterol 79, LDL Cholesterol 36, VLDL Cholesterol 12, HDL Cholesterol 31 L Current Medications Aspirin (Ecotrin) 81 mg PO DAILYCM CINDA Atorvastatin Calcium (Lipitor) 80 mg PO QHS CINDA Bisacodyl (Dulcolax) 5 mg PO DAILY PRN PRN PRN Reason: Constipation Brimonidine Tartrate (Brimonidine 0.2% 5ml Bottle) 1 drop EACH EYE BID CINDA Buspirone HCl (Buspar) 5 mg PO DAILY CINDA Cyanocobalamin (Vitamin B12) 1,000 mcg PO DAILY CINDA Doxazosin Mesylate (Cardura) 4 mg PO DAILY@2200 CINDA Sodium Chloride () 250 mls @ 15 mls/hr IV .[id number] PRN PRN Reason: SALINE FLUSH Isosorbide Mononitrate (Imdur) 90 mg PO DAILY CINDA Magnesium Hydroxide (Milk Of Magnesia) 30 ml PO DAILY PRN PRN Reason: Constipation Metoprolol Tartrate (Lopressor (Beta [place])) 50 mg PO BID CINDA Nitroglycerin (Nitrostat) 0.4 mg SUBLINGUAL Q5M PRN PRN Reason: CHEST PAIN Ondansetron HCl (Zofran) 4 mg IV Q8H PRN PRN PRN Reason: NAUSEA Pantoprazole Sodium (Protonix) 20 mg PO DAILY CINDA Sertraline HCl (Zoloft) 200 mg PO QHS [facility] Sodium Chloride () 5 - 15 ml IV UD PRN PRN Reason: SALINE FLUSH Ticagrelor (Brilinta) 90 mg PO BID CINDA Zolpidem Tartrate (Ambien (Generic)) 5 mg PO QHS PRN PRN PRN Reason: INSOMNIA Medical Necessity - Tobacco Use Smoking Status: Former smoker Assessment/Plan All Active Problems (Last Updated 06/19/18 @ 00:14 by Quinton Larson MD) Chest pain (Acute) Atrial fibrillation with RVR (Acute) Patient is a 68-year-old gentleman with multiple comorbidities including CAD who presented with chest pain. Patient was also noted to have A. fib with RVR admitted to monitored bed for further management 1. Paroxysmal A. fib with RVR. Patient converted spontaneously subsequently admitted to a monitored bed. Given patient high risk with a chart was to score of 3 patient was placed on systemic anticoagulation and consultation placed to cardiology 2. Chest pain cardiac enzymes have remained negative to date patient is on optimal treatment 3. Dyslipidemia-patient is on statin therapy, continued at home dose 4. Depression with anxiety 5. BPH 6. Glaucoma; Brimonidine titrate eyedrop continued 7. GERD 8. DVT prophylaxis on systemic anticoagulation Clinical Impression(s) from Imaging Studies Chest X-Ray 08/31/18 23:22 IMPRESSION: Degenerative changes, as described above. No demonstrated acute cardiopulmonary process. Electronically Signed: Dre You MD at 0:24 EST Tel , Service support , Active Medications Aspirin (Ecotrin) 81 mg PO DAILYCM CINDA Atorvastatin Calcium (Lipitor) 80 mg PO QHS CINDA Bisacodyl (Dulcolax) 5 mg PO DAILY PRN PRN PRN Reason: Constipation Brimonidine Tartrate (Brimonidine 0.2% 5ml Bottle) 1 drop EACH EYE BID CINDA Buspirone HCl (Buspar) 5 mg PO DAILY CINDA Cyanocobalamin (Vitamin B12) 1,000 mcg PO DAILY CINDA Doxazosin Mesylate (Cardura) 4 mg PO DAILY@2200 CINDA Sodium Chloride () 250 mls @ 15 mls/hr IV .[id number] PRN PRN Reason: SALINE FLUSH Isosorbide Mononitrate (Imdur) 90 mg PO DAILY CINDA Magnesium Hydroxide (Milk Of Magnesia) 30 ml PO DAILY PRN PRN Reason: Constipation Metoprolol Tartrate (Lopressor (Beta [place])) 50 mg PO BID CINDA Nitroglycerin (Nitrostat) 0.4 mg SUBLINGUAL Q5M PRN PRN Reason: CHEST PAIN Ondansetron HCl (Zofran) 4 mg IV Q8H PRN PRN PRN Reason: NAUSEA Pantoprazole Sodium (Protonix) 20 mg PO DAILY CINDA Sertraline HCl (Zoloft) 200 mg PO QHS CINDA Sodium Chloride () 5 - 15 ml IV UD PRN PRN Reason: SALINE FLUSH Ticagrelor (Brilinta) 90 mg PO BID CINDA Zolpidem Tartrate (Ambien (Generic)) 5 mg PO QHS PRN PRN PRN Reason: INSOMNIA Code Visit OBSV E&M: 99181 Subsequent observation care L3
--- NOTE | 2018-09-01 10:25 | CASEMGMT ---
Addendum entered by Adonay Garrett 09/01/18 10:49: Declination of Transfer form faxed to Jeanette @ [facility]. Original Note: MARJORIE PACHECO Assessment Presentation: presented to ER with 1 hour history of excruciating stubsternal chest pain, radiated to left arm and shoulder. Hx of heart cath and stents (2) in May, -Discuss[facility]. He does not wish to transfer. [facility] Declination of Transfer form completed. Call to Jeanette in Transfer Center, message left with MARJORIE PACHECO call back information. Will fax clinicals on request. [place] contact: Jeanette PH: FX: PCP: [facility] Preferred Pharmacy: [facility] Insurance: [facility] and [place] Benefits LNOK: , Johnna Kenyon Living Arrangements: Lives independently. Transportation: drives DME/HHC: none DC PLAN: Pt plans to return home with f/u @ [facility] in [place].
[2018-09-01] MEDS: Pantoprazole Sodium 20 MG Tablet PO (14:23)
[2018-09-01] MEDS: busPIRone 5 MG Tablet PO (14:24)
[2018-09-01] MEDS: Metoprolol Tartrate 50 MG Tablet PO ×2 (14:24→21:25)
[2018-09-01] MEDS: Aspirin E.C. 81 MG Tablet PO (14:24)
[2018-09-01] MEDS: Cyanocobalamin 500 MCG Tablet 1000 MCG PO (14:24)
[2018-09-01] MEDS: TICAGRELOR 90 MG TABLET PO ×2 (14:24→21:24)
[2018-09-01] MEDS: Isosorbide Mononitrate 30 MG Tablet 90 MG PO (14:24)
[2018-09-01] MEDS: BRIMONIDINE 0.2% 5ML BOTTLE 1 DRP EACH EYE ×2 (14:25→21:26)
--- NOTE | 2018-09-01 19:05 | PCM.CONS.C ---
Reason for Consult Date of Consultation: 09/01/18 Reason for Consultation: Irregular heartbeat History of Present Illness: The patient is a 68 year old M with a significant history of glaucoma; CAD status post 2 stents in the right coronary artery placed at the [facility] as well as a history of paroxysmal atrial fibrillation. He also has a history of depression; anxiety; GERD; and BPH who presented with 1 hour history of excruciating substernal chest pain that radiated to his left arm and his left shoulder. Patient took 3 nitroglycerin that provided mild relief from his chest pain. He denied any aggravating factor. His chest pain was sudden onset and started while at rest. His chest pain is continuous. He describes chest pain as aching. He denies any nausea, vomiting or diaphoresis. But he felt lightheaded and had a feeling of almost going to pass out. Also he had a headache. At emergency department patient was found to be in A. fib with rapid ventricular response. He converted with Cardizem 20 mg IV. At the time of my evaluation patient was in sinus rhythm and he denied any chest pain. He had presented to the hospital here at the end of May with palpitations and chest discomfort and he was treated with medication and discharged and went to follow-up at the [facility]. He underwent a stress test we did not demonstrate any evidence of ischemia medical therapy was recommended. He is apparently scheduled to undergo gallbladder surgery and his Brilinta is supposed to be discontinued at the end of this month. He denies any dizziness or diaphoresis no near syncope or syncope. His records from the [facility] was reviewed. Past Medical History Allergies/Adverse Reactions: Allergies No Known Allergies Allergy (Verified 08/31/18 23:16) Home Medications: Ambulatory Orders Medication Instructions Recorded Aspirin [Lo-Dose Aspirin EC] 81 mg PO DAILY 11/07/17 Atorvastatin Calcium [Lipitor] 80 mg PO QHS 11/07/17 Brimonidine Tartrate 0.2% 1 drop EACH EYE BID 11/07/17 [Brimonidine 0.2% 5Ml Bottle] Cyanocobalamin (Vitamin B-12) 1,000 mcg PO DAILY 11/07/17 [Vitamin B-12] Doxazosin Mesylate [Cardura] 4 mg PO DAILY 11/07/17 Metoprolol Tartrate [Lopressor 25 mg PO BID 11/07/17 (beta cindy)] Multivit-Min/Iron/Folic Acid/K 1 tab DAILY 11/07/17 [Adults Multivitamin Caplet] [place]-3 Fatty Acids/Fish Oil [Fish 1 each PO DAILY 11/07/17 Oil 1,000 mg Capsule] Sertraline HCl [Zoloft] 200 mg PO QHS 11/07/17 Ticagrelor [Brilinta] 90 mg PO BID 11/07/17 Omeprazole [Prilosec] 20 mg PO DAILY 06/19/18 busPIRone [Buspar] 5 mg PO DAILY 06/19/18 Isosorbide Mononitrate [Imdur] 90 mg PO DAILY 08/31/18 Surgical History: - - Stented coronaries - *Family History Maternal Family History: Family History (Last Reviewed 09/01/18 @ 01:49 by Quinton Larson MD) Father Leukemia Myocardial infarction Sister Hx of CABG Mother CAD (coronary artery disease) Lives: With Family Smoking Status: Former smoker Alcohol: Occasional Drugs: None Review of Systems - Review of Systems General: Denies: Fever, Night Sweats, Fatigue HEENT: Denies: Vision Change Cardiovascular: Reports: Chest Discomfort, Palpitations. Denies: Shortness of Breath, Orthopnea, PND, Peripheral Edema, Lightheadedness, Dizziness, Near Syncope, Syncope Respiratory: Denies: Cough, Sputum Production, Hemoptysis Gastrointestinal: Denies: Hematemesis, Hematochezia, Melena Genitourinary: Denies: Dysuria, Hematuria Muscoloskeletal: Denies: Myalgias Skin: Denies: Rash Neurological: Denies: Dizziness Psychiatric: Denies: Anxiety Hematologic/ Lymphatic: Denies: Anemia Subjectve: Pleasant gentleman in no apparent distress Objective: Vital Signs Temp Pulse Resp BP Pulse Ox 97.8 F 64 18 119/58 L 96 09/01/18 16:33 09/01/18 16:33 09/01/18 16:33 09/01/18 16:33 09/01/18 16:33 Oxygen Flow Rate (L/min) 2 Oxygen Delivery Method Room Air Weight: 199 lb 15.348 oz Body Mass Index (BMI) 31.3 Intake and Output for Last 24 Hours 08/30/18 08/31/18 09/01/18 23:59 23:59 23:59 Intake Total 300 / 300 Balance 300 / 300 General: Awake, Alert, Oriented x 3 HEENT: PERRL, EOMI, Sclera Non Icteric Neck: Supple, Good ROM, No Lymph Node Enlargement Lungs: Clear to auscultation Cardiovascular: Regular Rhythm, Normal S1, Normal S2, No Murmurs, No Rubs, No Gallops Vascular: No Carotid Bruits, Normal Femoral Pulses, Normal Radial Pulses, Normal Dorsalis Pedal Pulse, Normal Posterior Tibial Pulses Abdomen: Bowel Sounds Present, Soft, Non Tender, No HSM, No Organomegaly Extremities: No Cyanosis, No Clubbing, No edema Neurological: No Focal Motor or Sensory Deficit 08/31/18 23:25: WBC 7.4, RBC 4.53 L, Hgb 13.1, Hct 40.5, MCV 89.4, MCH 28.9, MCHC 32.3, RDW 16.0 H, RDW Differential 51.5 H, Plt Count 116 L, MPV 11.7, Immature Gran % (Auto) 0.300, Neut % (Auto) 68.6, Lymph % (Auto) 20.5, [place] % (Auto) 10.0, Eos % (Auto) 0.3, Baso % (Auto) 0.3, Absolute Neuts (auto) 5.1, Total Counted Not Reportable 08/31/18 23:25: Sodium 142, Potassium 3.9, Chloride 109 H, Carbon Dioxide 23.0, Anion Gap 10, BUN 14, Creatinine 0.66 L, Est GFR (MDRD) Af Amer 154, Est GFR (MDRD) Non-Af 127, BUN/Creatinine Ratio 21.2 H, Glucose 149 H, Calcium 8.6, Troponin I < 0.015 08/31/18 23:25: Magnesium 2.1 09/01/18 02:25: Troponin I 0.026 09/01/18 05:25: Troponin I 0.029, Triglycerides 59, Cholesterol 79, LDL Cholesterol 36, VLDL Cholesterol 12, HDL Cholesterol 31 L Rhythm: EKG: Presenting rhythm demonstrated atrial fibrillation with rapid ventricular response rate. Subsequent rhythm demonstrates normal sinus rhythm with no acute changes ECHO: Normal ejection fraction of 60-65% performed at the [facility] in July 2018 Assessment/Plan 1. Paroxysmal atrial fibrillation Patient presents with paroxysmal atrial fibrillation. This is apparently the second episode. He does have mild coronary artery disease with stenting and his recent stress test demonstrates no evidence of ischemia and his echocardiogram demonstrates preserved ejection fraction. Ideally he needs to be on an anticoagulant such as warfarin or a factor X inhibitor but as he is on aspirin and Brilinta I would wait for him to be off the Brilinta at the end of this months before considering that agent. In the meantime he should continue his beta-cindy I would recommend the addition of amiodarone 200 mg twice a day until he undergoes his gallbladder surgery. Would recommend discharge home tomorrow if he is maintaining sinus rhythm. 2. Coronary artery disease He does have evidence of coronary artery disease status post angioplasty and stenting with drug-eluting stents. His most recent stress test did not demonstrate any evidence of ischemia and therefore at this time I think that his mild troponin elevation is likely secondary to demand ischemia from his atrial fibrillation. No other therapeutic measures will be instituted. He will continue with risk factor modification 3. Hypertension His blood pressure is under good control on the current medical therapy which will be continued He tells me that he may be undergoing gallbladder surgery later this month or next month. I suspect that his Brilinta can be discontinued prior to the above surgery and after that we may need to consider putting him on an anticoagulant. Thank you for allowing me to participate in the care of your patient. Please don't hesitate to call if any issues arise
--- NOTE | 2018-09-01 19:09 | CON.PCM_ITS ---
Reason for Consult Date of Consultation: 09/01/18 Reason for Consultation: Irregular heartbeat History of Present Illness: The patient is a 68 year old M with a significant history of glaucoma; CAD status post 2 stents in the right coronary artery placed at the [facility] as well as a history of paroxysmal atrial fibrillation. He also has a history of depression; anxiety; GERD; and BPH who presented with 1 hour history of excruciating substernal chest pain that radiated to his left arm and his left shoulder. Patient took 3 nitroglycerin that provided mild relief from his chest pain. He denied any aggravating factor. His chest pain was sudden onset and started while at rest. His chest pain is continuous. He describes chest pain as aching. He denies any nausea, vomiting or diaphoresis. But he felt lightheaded and had a feeling of almost going to pass out. Also he had a headache. At emergency department patient was found to be in A. fib with rapid ventricular response. He converted with Cardizem 20 mg IV. At the time of my evaluation patient was in sinus rhythm and he denied any chest pain. He had presented to the hospital here at the end of May with palpitations and chest discomfort and he was treated with medication and discharged and went to follow-up at the [facility]. He underwent a stress test we did not demonstrate any evidence of ischemia medical therapy was recommended. He is apparently scheduled to undergo gallbladder surgery and his Brilinta is supposed to be discontinued at the end of this month. He denies any dizziness or diaphoresis no near syncope or syncope. His records from the [facility] was reviewed. Past Medical History Allergies/Adverse Reactions: Allergies No Known Allergies Allergy (Verified 08/31/18 23:16) Home Medications: Ambulatory Orders Medication Instructions Recorded Aspirin [Lo-Dose Aspirin EC] 81 mg PO DAILY 11/07/17 Atorvastatin Calcium [Lipitor] 80 mg PO QHS 11/07/17 Brimonidine Tartrate 0.2% 1 drop EACH EYE BID 11/07/17 [Brimonidine 0.2% 5Ml Bottle] Cyanocobalamin (Vitamin B-12) 1,000 mcg PO DAILY 11/07/17 [Vitamin B-12] Doxazosin Mesylate [Cardura] 4 mg PO DAILY 11/07/17 Metoprolol Tartrate [Lopressor 25 mg PO BID 11/07/17 (beta cindy)] Multivit-Min/Iron/Folic Acid/K 1 tab DAILY 11/07/17 [Adults Multivitamin Caplet] [place]-3 Fatty Acids/Fish Oil [Fish 1 each PO DAILY 11/07/17 Oil 1,000 mg Capsule] Sertraline HCl [Zoloft] 200 mg PO QHS 11/07/17 Ticagrelor [Brilinta] 90 mg PO BID 11/07/17 Omeprazole [Prilosec] 20 mg PO DAILY 06/19/18 busPIRone [Buspar] 5 mg PO DAILY 06/19/18 Isosorbide Mononitrate [Imdur] 90 mg PO DAILY 08/31/18 Surgical History: - - Stented coronaries - *Family History Maternal Family History: Family History (Last Reviewed 09/01/18 @ 01:49 by Quinton Larson MD) Father Leukemia Myocardial infarction Sister Hx of CABG Mother CAD (coronary artery disease) Lives: With Family Smoking Status: Former smoker Alcohol: Occasional Drugs: None Review of Systems - Review of Systems General: Denies: Fever, Night Sweats, Fatigue HEENT: Denies: Vision Change Cardiovascular: Reports: Chest Discomfort, Palpitations. Denies: Shortness of Breath, Orthopnea, PND, Peripheral Edema, Lightheadedness, Dizziness, Near Syncope, Syncope Respiratory: Denies: Cough, Sputum Production, Hemoptysis Gastrointestinal: Denies: Hematemesis, Hematochezia, Melena Genitourinary: Denies: Dysuria, Hematuria Muscoloskeletal: Denies: Myalgias Skin: Denies: Rash Neurological: Denies: Dizziness Psychiatric: Denies: Anxiety Hematologic/ Lymphatic: Denies: Anemia Subjectve: Pleasant gentleman in no apparent distress Objective: Vital Signs Temp Pulse Resp BP Pulse Ox 97.8 F 64 18 119/58 L 96 09/01/18 16:33 09/01/18 16:33 09/01/18 16:33 09/01/18 16:33 09/01/18 16:33 Oxygen Flow Rate (L/min) 2 Oxygen Delivery Method Room Air Weight: 199 lb 15.348 oz Body Mass Index (BMI) 31.3 Intake and Output for Last 24 Hours 08/30/18 08/31/18 09/01/18 23:59 23:59 23:59 Intake Total 300 / 300 Balance 300 / 300 General: Awake, Alert, Oriented x 3 HEENT: PERRL, EOMI, Sclera Non Icteric Neck: Supple, Good ROM, No Lymph Node Enlargement Lungs: Clear to auscultation Cardiovascular: Regular Rhythm, Normal S1, Normal S2, No Murmurs, No Rubs, No Gallops Vascular: No Carotid Bruits, Normal Femoral Pulses, Normal Radial Pulses, Normal Dorsalis Pedal Pulse, Normal Posterior Tibial Pulses Abdomen: Bowel Sounds Present, Soft, Non Tender, No HSM, No Organomegaly Extremities: No Cyanosis, No Clubbing, No edema Neurological: No Focal Motor or Sensory Deficit 08/31/18 23:25: WBC 7.4, RBC 4.53 L, Hgb 13.1, Hct 40.5, MCV 89.4, MCH 28.9, MCHC 32.3, RDW 16.0 H, RDW Differential 51.5 H, Plt Count 116 L, MPV 11.7, Immature Gran % (Auto) 0.300, Neut % (Auto) 68.6, Lymph % (Auto) 20.5, Lea % (Auto) 10.0, Eos % (Auto) 0.3, Baso % (Auto) 0.3, Absolute Neuts (auto) 5.1, Total Counted Not Reportable 08/31/18 23:25: Sodium 142, Potassium 3.9, Chloride 109 H, Carbon Dioxide 23.0, Anion Gap 10, BUN 14, Creatinine 0.66 L, Est GFR (MDRD) Af Amer 154, Est GFR (MDRD) Non-Af 127, BUN/Creatinine Ratio 21.2 H, Glucose 149 H, Calcium 8.6, Troponin I < 0.015 08/31/18 23:25: Magnesium 2.1 09/01/18 02:25: Troponin I 0.026 09/01/18 05:25: Troponin I 0.029, Triglycerides 59, Cholesterol 79, LDL Cholesterol 36, VLDL Cholesterol 12, HDL Cholesterol 31 L Rhythm: EKG: Presenting rhythm demonstrated atrial fibrillation with rapid ventricular response rate. Subsequent rhythm demonstrates normal sinus rhythm with no acute changes ECHO: Normal ejection fraction of 60-65% performed at the [facility] in July 2018 Assessment/Plan 1. Paroxysmal atrial fibrillation * Patient presents with paroxysmal atrial fibrillation. This is apparently the second episode. He does have mild coronary artery disease with stenting and his recent stress test demonstrates no evidence of ischemia and his echocardiogram demonstrates preserved ejection fraction. * Ideally he needs to be on an anticoagulant such as warfarin or a factor X inhibitor but as he is on aspirin and Brilinta I would wait for him to be off the Brilinta at the end of this months before considering that agent. * In the meantime he should continue his beta-cindy * I would recommend the addition of amiodarone 200 mg twice a day until he undergoes his gallbladder surgery. * Would recommend discharge home tomorrow if he is maintaining sinus rhythm. 2. Coronary artery disease * He does have evidence of coronary artery disease status post angioplasty and stenting with drug-eluting stents. * His most recent stress test did not demonstrate any evidence of ischemia and therefore at this time I think that his mild troponin elevation is likely secondary to demand ischemia from his atrial fibrillation. No other therapeutic measures will be instituted. * He will continue with risk factor modification 3. Hypertension * His blood pressure is under good control on the current medical therapy which will be continued * * He tells me that he may be undergoing gallbladder surgery later this month or next month. I suspect that his Brilinta can be discontinued prior to the above surgery and after that we may need to consider putting him on an anticoagulant. Thank you for allowing me to participate in the care of your patient. Please don't hesitate to call if any issues arise
--- NOTE | 2018-09-01 20:55 | NURSING ---
Pt did a self bath with a bath pack in the bathroom and brushed his teeth at this time.
[2018-09-01] MEDS: Doxazosin 4 MG Tablet PO (21:24)
[2018-09-01] MEDS: Atorvastatin Calcium 80 MG Tablet PO (21:25)
[2018-09-01] MEDS: Sertraline 100 MG Tablet 200 MG PO (21:26)
[2018-09-01] MEDS: Amiodarone 200 MG Tablet PO (21:27)
[2018-09-02 02:24] VITALS: BP 120/49; PULSE 65; RESP 14; TEMP 36.5; O2SAT 96
[2018-09-02 04:00] VITALS: PULSE 63
[2018-09-02 04:31] LABS: Hematocrit 38.6 % (40-54); Hemoglobin 12.4 g/dl (13.0-16.5); Mean Corp Hgb Conc 32.1 g/gl (32-36); Mean Corpuscular Hgb 28.9 pg (27.0-32.0); Mean Platelet Vol. 11.5 fl (6.2-12.0); Platelet Count 111 K/mm3 (150-450); RBC Distribution Width SD 51.7 fl (35.1-43.9); Red Blood Count 4.29 M/mm3 (4.6-6.2); Scan Indicated on CBC? Y/N NO; White Blood Count 7.4 K/mm3 (4.4-11.0)
[2018-09-02 04:46] LABS: Anion Gap 9 (5-15); BUN 13 mg/dL (7-18); BUN/Creat Ratio 18.4 RATIO (10-20); Calcium,Total 8.3 mg/dL (8.5-10.1); Chloride 108 mmol/L (98-107); Creatinine, Serum 0.71 mg/dL (0.70-1.30); EST Glomerular Filtration Rate 117 mL/min (>60); Est Glom Filt Rate - Afr Amer 141 mL/min (>60); Estimated Creatinine Clearance 64.26 ml/min; Glucose 102 mg/dL (74-106); Magnesium 2.3 mg/dL (1.6-2.6); Potassium 4.4 mmol/L (3.5-5.1); Sodium Level 142 mmol/L (136-145)
[2018-09-02 07:28] VITALS: PULSE 68
--- NOTE | 2018-09-02 07:28 | PN.CARD_ITS ---
Subjectve: Patient seen and evaluated. Appears to be doing well. No cardiac complaints at this time. Objective: Vital Signs Temp Pulse Resp BP Pulse Ox 97.7 F L 63 14 120/49 L 96 09/02/18 02:24 09/02/18 04:00 09/02/18 02:24 09/02/18 02:24 09/02/18 02:24 Oxygen Flow Rate (L/min) 2 Oxygen Delivery Method Room Air Weight: 199 lb 15.348 oz Body Mass Index (BMI) 31.3 Intake and Output for Last 24 Hours 08/31/18 09/01/18 09/02/18 23:59 23:59 23:59 Intake Total 775 / 775 300 / 300 Balance 775 / 775 300 / 300 General: Awake, Alert, Oriented x 3 HEENT: PERRL, EOMI, Sclera Non Icteric Neck: Supple, Good ROM, No Lymph Node Enlargement Lungs: Clear to auscultation Cardiovascular: Regular Rhythm, Normal S1, Normal S2, No Murmurs, No Rubs, No Gallops Vascular: No Carotid Bruits, Normal Femoral Pulses, Normal Radial Pulses, Normal Dorsalis Pedal Pulse, Normal Posterior Tibial Pulses Abdomen: Bowel Sounds Present, Soft, Non Tender, No HSM, No Organomegaly Extremities: No Cyanosis, No Clubbing, No edema Neurological: No Focal Motor or Sensory Deficit 09/02/18 04:25: WBC 7.4, RBC 4.29 L, Hgb 12.4 L, Hct 38.6 L, MCV 90.0, MCH 28.9, MCHC 32.1, RDW 16.0 H, RDW Differential 51.7 H, Plt Count 111 L, MPV 11.5 09/02/18 04:25: Sodium 142, Potassium 4.4, Chloride 108 H, Carbon Dioxide 25.0, Anion Gap 9, BUN 13, Creatinine 0.71, Est GFR (MDRD) Af Amer 141, Est GFR (MDRD) Non-Af 117, BUN/Creatinine Ratio 18.4, Glucose 102, Calcium 8.3 L, Magnesium 2.3 Rhythm: EKG: ECHO: Stress Test: Cardiac Cath: PCI: CT Surgery: Holter monitor: EPS: PPM: CXR: Chest CT Scan: Medical Necessity - Tobacco Use Smoking Status: Former smoker Assessment/Plan 1. Paroxysmal atrial fibrillation * Patient presents with paroxysmal atrial fibrillation. This is apparently the second episode. He does have mild coronary artery disease with stenting and his recent stress test demonstrates no evidence of ischemia and his echocardiogram demonstrates preserved ejection fraction. * Ideally he needs to be on an anticoagulant such as warfarin or a factor X inhibitor but as he is on aspirin and Brilinta I would wait for him to be off the Brilinta at the end of this months before considering that agent. * In the meantime he should continue his beta-cindy * I would recommend the addition of amiodarone 200 mg twice a day until he undergoes his gallbladder surgery. * Would recommend discharge home today. 2. Coronary artery disease * He does have evidence of coronary artery disease status post angioplasty and stenting with drug-eluting stents. * His most recent stress test did not demonstrate any evidence of ischemia and therefore at this time I think that his mild troponin elevation is likely secondary to demand ischemia from his atrial fibrillation. No other therapeutic measures will be instituted. * He will continue with risk factor modification 3. Hypertension * His blood pressure is under good control on the current medical therapy which will be continued * * He tells me that he may be undergoing gallbladder surgery later this month or next month. I suspect that his Brilinta can be discontinued prior to the above surgery and after that we may need to consider putting him on an anticoagulant. Thank you for allowing me to participate in the care of your patient. Please don't hesitate to call if any issues arise
[2018-09-02 08:06] VITALS: BP 147/70; PULSE 65; RESP 16; TEMP 36.9; O2SAT 95
--- NOTE | 2018-09-02 08:24 | DCINST_ITS ---
- Discharge Diagnoses Current Active Problems: Current Active and Chronic Problems (Last Updated 06/19/18 @ 00:14 by Quinton Larson MD) Atrial fibrillation with RVR (Acute) Instructions: ED Chest Pain NonCardiac Allergies/Adverse Reactions: Allergies No Known Allergies Allergy (Verified 08/31/18 23:16) Medications to take at Discharge Aspirin [Lo-Dose Aspirin EC] 81 mg PO DAILY 11/07/17 Atorvastatin Calcium [Lipitor] 80 mg PO QHS 11/07/17 Brimonidine Tartrate 0.2% [Brimonidine 0.2% 5Ml Bottle] 1 drop EACH EYE BID 11/07/17 Cyanocobalamin (Vitamin B-12) [Vitamin B-12] 1,000 mcg PO DAILY 11/07/17 Doxazosin Mesylate [Cardura] 4 mg PO DAILY 11/07/17 Metoprolol Tartrate [Lopressor (beta cindy)] 25 mg PO BID 11/07/17 Multivit-Min/Iron/Folic Acid/K [Adults Multivitamin Caplet] 1 tab DAILY 11/07/17 [place]-3 Fatty Acids/Fish Oil [Fish Oil 1,000 mg Capsule] 1 each PO DAILY 11/07/17 Sertraline HCl [Zoloft] 200 mg PO QHS 11/07/17 Ticagrelor [Brilinta] 90 mg PO BID 11/07/17 Omeprazole [Prilosec] 20 mg PO DAILY 06/19/18 busPIRone [Buspar] 5 mg PO DAILY 06/19/18 Isosorbide Mononitrate [Imdur] 90 mg PO DAILY 08/31/18 Amiodarone HCl [Cordarone] 200 mg PO BID #60 tablet 09/02/18 The following prescriptions were given: Amiodarone HCl [Cordarone] 200 mg PO BID #60 tablet Primary Care Physician: [facility] [Primary Care Provider] - Please follow up with your Primary Care Physician in: IN 1-2 WEEKS Test Results: Test results from this visit will be discussed in further detail at your follow- up appointment, if applicable. Proposed Discharge Date: 09/02/18
--- NOTE | 2018-09-02 08:25 | PCM.DC.SUM ---
Discharge Date and Diagnosis - Problem List Patient Problems: Active and Suspected Problems (Last Updated 06/19/18 @ 00:14 by Quinton Larson MD) Atrial fibrillation with RVR (Acute) Date of Admission: 09/01/18 Date of Discharge: 09/02/18 - Primary Discharge Diagnosis Active and Suspected Problems (Last Updated 06/19/18 @ 00:14 by Quinton Larson MD) Atrial fibrillation with RVR (Acute) - Secondary Discharge Diagnosis Chronic Problems (Last Updated 06/19/18 @ 00:14 by Quinton Larson MD) CAD (coronary artery disease) (Chronic) Hospital Course and Treatment Imaging Results: Clinical Impression(s) from Imaging Studies Chest X-Ray 08/31/18 23:22 IMPRESSION: Degenerative changes, as described above. No demonstrated acute cardiopulmonary process. Electronically Signed: Dre You MD at 0:24 EST Tel , Service support , Summary of Care Provided: Patient is a 68-year-old gentleman with multiple comorbidities including CAD who presented with chest pain. Patient was also noted to have A. fib with RVR admitted to monitored bed for further management 1. Paroxysmal A. fib with RVR. Patient converted spontaneously subsequently admitted to a monitored bed. Given patient high risk with a chart was to score of 3 patient was placed on systemic anticoagulation and consultation placed to cardiology. Patient was seen in consultation by Dr. Fletcher with cardiology recommended initiation of amiodarone 200 mg p.o. twice daily. Plan is for patient to be initiated on systemic anticoagulation once he comes off his Brilinta within a month. 2. Chest pain cardiac enzymes have remained negative to date patient is on optimal treatment 3. Dyslipidemia-patient is on statin therapy, continued at home dose 4. Depression with anxiety 5. BPH 6. Glaucoma; Brimonidine titrate eyedrop continued 7. GERD 8. DVT prophylaxis on systemic anticoagulation Patient Problems: Active and Suspected Problems (Last Updated 06/19/18 @ 00:14 by Quinton Larson MD) Atrial fibrillation with RVR (Acute) Subjective: GENERAL: cooperative HEENT: Atraumatic; moist oral mucosa EYES; Anicteric, Normal Conjunctiva NECK; supple, normal thyroid, RESPIRATORY: Diminished to auscultation bilaterally, CARDIOVASCULAR: Regular S1 S2, GI: soft, non-tender, normoactive bowel sounds, : No Renal angle tenderness; EXTREMITIES: No edema, no clubbing, no cyanosis. MUSCULOSKELETAL: No Joint Tenderness; NEURO: Awake; no lateralizing signs. SKIN: No Rash PSYCH;flat affect - Physical Exam Vital Signs Temp Pulse Resp BP Pulse Ox 98.5 F 65 16 147/70 H 95 09/02/18 08:06 09/02/18 08:06 09/02/18 08:06 09/02/18 08:06 09/02/18 08:06 Oxygen Flow Rate (L/min) 2 Oxygen Delivery Method Room Air Weight: 90.7 kg Body Mass Index (BMI) 31.3 Intake and Output for Last 24 Hours 08/31/18 09/01/18 09/02/18 23:59 23:59 23:59 Intake Total 775 / 775 300 / 300 Balance 775 / 775 300 / 300 Laboratory Tests Past 24 Hrs 09/02/18 09/02/18 04:25 04:25 WBC 7.4 RBC 4.29 L Hgb 12.4 L Hct 38.6 L MCV 90.0 MCH 28.9 MCHC 32.1 RDW 16.0 H RDW Differential 51.7 H Plt Count 111 L MPV 11.5 Sodium 142 Potassium 4.4 Chloride 108 H Carbon Dioxide 25.0 Anion Gap 9 BUN 13 Creatinine 0.71 Estim Creat Clear Calc 64.26 Est GFR (MDRD) Af Amer 141 Est GFR (MDRD) Non-Af 117 BUN/Creatinine Ratio 18.4 Glucose 102 Calcium 8.3 L Magnesium 2.3 Discharge Diet: Low fat/ Low Cholesterol Home Medications: Medications to take at Discharge Aspirin [Lo-Dose Aspirin EC] 81 mg PO DAILY 11/07/17 Atorvastatin Calcium [Lipitor] 80 mg PO QHS 11/07/17 Brimonidine Tartrate 0.2% [Brimonidine 0.2% 5Ml Bottle] 1 drop EACH EYE BID 11/07/17 Cyanocobalamin (Vitamin B-12) [Vitamin B-12] 1,000 mcg PO DAILY 11/07/17 Doxazosin Mesylate [Cardura] 4 mg PO DAILY 11/07/17 Metoprolol Tartrate [Lopressor (beta cindy)] 25 mg PO BID 11/07/17 Multivit-Min/Iron/Folic Acid/K [Adults Multivitamin Caplet] 1 tab DAILY 11/07/17 [place]-3 Fatty Acids/Fish Oil [Fish Oil 1,000 mg Capsule] 1 each PO DAILY 11/07/17 Sertraline HCl [Zoloft] 200 mg PO QHS 11/07/17 Ticagrelor [Brilinta] 90 mg PO BID 11/07/17 Omeprazole [Prilosec] 20 mg PO DAILY 06/19/18 busPIRone [Buspar] 5 mg PO DAILY 06/19/18 Isosorbide Mononitrate [Imdur] 90 mg PO DAILY 08/31/18 Amiodarone HCl [Cordarone] 200 mg PO BID #60 tablet 09/02/18 Following Prescrptions Were Given to Patient: Amiodarone HCl [Cordarone] 200 mg PO BID #60 tablet [facility] [Primary [facility]] - Please follow up with your Primary Care Physician in: IN 1-2 WEEKS Patient Instructions: ED Chest Pain NonCardiac Disposition: Home Minutes spent on discharge:: 35 Patient Condition:: Stable Medical Necessity - Tobacco Use Smoking Status: Former smoker Meaningful Use Info Meaningful Use Diagnoses (Choose all that apply): None applicable Code Visit OBSV E&M: 12199 Observation care discharge
[2018-09-02 09:45] VITALS: PULSE 81
[2018-09-02] MEDS: Isosorbide Mononitrate 30 MG Tablet 90 MG PO (09:45)
[2018-09-02] MEDS: Pantoprazole Sodium 20 MG Tablet PO (09:45)
[2018-09-02] MEDS: Metoprolol Tartrate 50 MG Tablet PO (09:45)
[2018-09-02] MEDS: Amiodarone 200 MG Tablet PO (09:45)
[2018-09-02] MEDS: Aspirin E.C. 81 MG Tablet PO (09:45)
[2018-09-02] MEDS: Cyanocobalamin 500 MCG Tablet 1000 MCG PO (09:45)
[2018-09-02] MEDS: busPIRone 5 MG Tablet PO (09:45)
[2018-09-02] MEDS: TICAGRELOR 90 MG TABLET PO (09:45)
[2018-09-02] MEDS: BRIMONIDINE 0.2% 5ML BOTTLE 1 DRP EACH EYE (09:47)
== END 2018-09-02 10:15 | disposition home or self-care (01) ==
LOC: ED 23:55 → ICU 09-01 01:10
PROVIDERS: Emergency Medicine; Admitting Provider Hospitalist; Emergency Provider Emergency Medicine; Referring Provider Hospitalist; Visit Provider Internal Medicine
DX: I48.0 Paroxysmal atrial fibrillation (principal); I25.10 Atherosclerotic heart disease of native coronary artery without angina pectoris; N40.0 Benign prostatic hyperplasia without lower urinary tract symptoms; K21.9 Gastro-esophageal reflux disease without esophagitis; Z87.891 Personal history of nicotine dependence; I10 Essential (primary) hypertension; E78.5 Hyperlipidemia, unspecified; H40.9 Unspecified glaucoma; F41.8 Other specified anxiety disorders; Z79.899 Other long term (current) drug therapy; Z79.82 Long term (current) use of aspirin; Z95.5 Presence of coronary angioplasty implant and graft
CPT/HCPCS: 71045; 80048; 80061; 83735; 84443; 84484; 85025; 85027; 93005; 96372; 96374; 99218; 99283; J7030; A4216; G0378

== ENCOUNTER 2019-07-16 18:51 | Emergency (ER) | payer MEDICARE, SELFPAY ==
[2018-09-01 01:28] VITALS: BMI 31.3
[2019-07-16 18:52] VITALS: BP 160/125; PULSE 149; RESP 22; TEMP 36.6; O2SAT 94; BMI 32.3
--- NOTE | 2019-07-16 18:57 | EKG12_ITS ---
Test Reason : CP Blood Pressure : / mmHG Vent. Rate : 158 BPM Atrial Rate : 156 BPM P-R Int : 000 ms QRS Dur : 086 ms QT Int : 294 ms P-R-T Axes : 000 -19 045 degrees QTc Int : 476 ms Atrial fibrillation with rapid ventricular response Inferior infarct , age undetermined Abnormal ECG Confirmed by BELA SUH, ALICIA ([id number]), editor index ANTHONY GRAY ([id number] on 07/20/2019 12:00:58 PM Referred By: LUIGI Confirmed By:ALICIA CRAMER MD
--- NOTE | 2019-07-16 18:58 | RAD_ITS ---
STUDY: X-RAY CHEST REASON FOR EXAM: Male, 69 years old. Chest pain radiating to the left TECHNIQUE: Single view of the chest was obtained COMPARISON: 08/31/2018 chest radiograph FINDINGS: Eventration of the right hemidiaphragm. Mild perihilar streaky opacities. No consolidative process or pneumothorax. Osseous structures demonstrate no acute abnormalities. IMPRESSION: No acute cardiopulmonary pathology. Electronically Signed: Sabas Mora, at 19:21 EST Tel , Service support , RAD/Chest 1 View (Portable)
--- NOTE | 2019-07-16 18:59 | EKG12_ITS ---
Test Reason : REPEAT Blood Pressure : / mmHG Vent. Rate : 093 BPM Atrial Rate : 093 BPM P-R Int : 176 ms QRS Dur : 086 ms QT Int : 368 ms P-R-T Axes : 049 -30 036 degrees QTc Int : 457 ms Normal sinus rhythm Left axis deviation Abnormal ECG Confirmed by BELA SUH, ALICIA ([id number]), restaurant expeditor ANTHONY GRAY ([id number] on 07/20/2019 11:59:57 AM Referred By: Confirmed By:ALICIA CRAMER MD
--- NOTE | 2019-07-16 19:07 | ED.VISSUMM ---
- ER Visit Summary Date of Service: 07/16/19 Chief Complaint: Chest pain History of Present Illness: The patient is a 69 M who presents emergency department with chest pain. Patient states symptoms began abruptly when he was sitting in recliner chair at 1820 hrs. after his Thanksgiving dinner. Patient reports taking a couple of nitroglycerin which helped his pain. He notes his daughter tried to take his pulse but it was too fast. He does have a history of atrial fibrillation but states he will not normally in it. He was admitted in the hospital earlier this year for A. fib and was started amongst other medicines on amiodarone which he tells me has subsequently been discontinued. He was on Brilinta because he had coronary artery stents placed but is no longer on that and is now on Eliquis. He states he has not missed any doses of Eliquis in the last 30 days he notes that yesterday he felt okay except he did note a little bit of lightheadedness particularly when he bent over and stood up. [facility]. Physical Examination: Afebrile blood pressure 160/125 heart rate of 156 respirations 22 pulse ox 94% and he is afebrile Gen: Well-nourished well-developed Head: Normocephalic atraumatic Eyes: Perrl EOMI ENT: TMs clear no rhinorrhea moist mucous membranes Neck: Supple no lymphadenopathy no JVD nontender CVS: Irregularly irregular tachycardic rhythm no murmurs normal S1-S2 Respiratory: No distress clear to auscultation bilaterally chest nontender Abdomen: Soft nontender nondistended normal bowel sounds no masses Back: Nontender Extremity: Nontender no edema Skin: Normal color no rash Neuro: alert orientated ?3 CN II-XII intact normal strength sensation reflexes gait cerebellar Psych: Normal affect normal mood Test Results: EKG demonstrates A. fib at a rate of 158. CBC is normal. Glucose 156. Troponin negative. Magnesium normal. Chest x-ray shows a normal mediastinal silhouette no evidence of failure. Emergency Department Course and Treatment: Patient received a 20 mg bolus of Cardizem. After approximately 15 to 20 minutes he converted to a normal sinus rhythm. After his conversion a repeat EKG was obtained which does not show any concerning features of ACS or ST depression. Patient is asymptomatic at the current time. He will be observed and then discharged if he maintains a sinus rhythm and without symptoms. He is supposed to see cardiology on Saturday for a stress test. He is advised to call them tomorrow and inform them of tonight's visit. He is advised that if he has a return of symptoms he should come back to the emergency department Impression: 1. Accessible atrial fibrillation with rapid ventricular response 2. Chemical cardioversion This note was generated with [employer] dictation software. It may contain incorrect words, spelling, and punctuation that were not noted in review of the chart prior to signing ED Disposition - Plan for ED Patient: Disposition: Home or Assisted Living Instructions: Atrial Fibrillation [facility]: [facility] [Primary [facility] Provider] - (call in the morning to discuss tonight's visit and your stress test on Saturday)
[2019-07-16 19:09] LABS: Absolute Lymphocyte Count 1.97 X10^3/uL (0.83-4.51); Absolute Neutrophil Count 5.5 X10^3/uL (2.0-7.7); Basophil# 0.02 X10^3/uL; Basophil% 0.2 % (0-1); Eosinophil# 0.03 X10^3/uL; Eosinophils% 0.4 % (0-5); Hematocrit 42.5 % (40-54); Hemoglobin 13.6 g/dL (13.0-16.5); Lymphocyte # 1.97 X10^3/ul (4.0); Lymphocyte % 24.1 % (19-41); Mean Corpuscular Hgb 28.7 pg (27.0-32.0); Mean Corpuscular Volume 89.7 fL (80-94); Mean Platelet Vol. 12.2 fl (6.2-12.0); Monocyte# 0.66 X10^3/uL; Monocyte% 8.1 % (0-10); NRBC Flagged by Analyzer 0 % (0-5); Neutrophil # 5.45 X10^3/uL (2.7-7.7); Neutrophil % 66.8 % (47-70); Platelet Count 119 K/mm3 (150-450); RBC Distribution Width CV 15.7 % (11.6-14.6); RBC Distribution Width SD 51.4 fl (35.1-43.9); Red Blood Count 4.74 M/mm3 (4.6-6.2); White Blood Count 8.2 K/mm3 (4.4-11.0)
[2019-07-16 19:30] LABS: International Normalized Ratio 1.3
[2019-07-16 19:31] LABS: Partial Thromboplast Time 31.3 Seconds (24.1-36.2)
[2019-07-16 19:32] LABS: AST(SGOT) 33 U/L (15-37); Alanine Aminotransfer ALT/SGPT 55 U/L (16-61); Albumin, Serum 3.7 g/dL (3.2-5.0); Alkaline Phosphatase 94 U/L (45-117); Anion Gap 9 (5-15); BUN 18 mg/dL (7-18); Calcium,Total 8.8 mg/dL (8.5-10.1); Chloride 106 mmol/L (98-107); Creatinine, Serum 0.94 mg/dL (0.70-1.30); EST Glomerular Filtration Rate 84 mL/min (>60); Est Glom Filt Rate - Afr Amer 101 mL/min (>60); Estimated Creatinine Clearance 67.39 ml/min; Globulin 3.6 g/dL (2.2-4.2); Glucose 156 mg/dL (74-106); Potassium 3.8 mmol/L (3.5-5.1); Protein, Total 7.3 g/dL (6.4-8.2); Sodium Level 141 mmol/L (136-145)
[2019-07-16] MEDS: dilTIAZem 25 MG/5 ML Vial 20 MG IV BOLUS (19:35)
[2019-07-16 20:24] VITALS: BP 155/75; PULSE 89; RESP 14; O2SAT 98
[2019-07-16 20:59] VITALS: BP 149/73; PULSE 91; RESP 17; O2SAT 96
== END 2019-07-16 21:01 | disposition home or self-care (01) ==
PROVIDERS: Emergency Provider Emergency Medicine
DX: I48.91 Unspecified atrial fibrillation (principal); I25.10 Atherosclerotic heart disease of native coronary artery without angina pectoris; I10 Essential (primary) hypertension; K21.9 Gastro-esophageal reflux disease without esophagitis; H40.9 Unspecified glaucoma; N40.0 Benign prostatic hyperplasia without lower urinary tract symptoms; Z79.82 Long term (current) use of aspirin; Z79.01 Long term (current) use of anticoagulants; Z87.891 Personal history of nicotine dependence; Z95.5 Presence of coronary angioplasty implant and graft
CPT/HCPCS: 71045; 80053; 83735; 84484; 85025; 85610; 85730; 93005; 96374; 99284; A4216

== ENCOUNTER 2019-08-07 21:40 | Emergency (ER) | payer MEDICARE, SELFPAY ==
[2019-08-07 21:42] VITALS: BP 149/85; PULSE 90; RESP 18; TEMP 36.7; O2SAT 95; BMI 30.5
--- NOTE | 2019-08-07 22:26 | EKG12_ITS ---
Test Reason : CP Blood Pressure : / mmHG Vent. Rate : 154 BPM Atrial Rate : 197 BPM P-R Int : 000 ms QRS Dur : 086 ms QT Int : 302 ms P-R-T Axes : 000 -11 040 degrees QTc Int : 483 ms Atrial fibrillation with rapid ventricular response Inferior infarct , age undetermined Abnormal ECG Confirmed by BELA SUH, ALICIA ([id number]), design editor ANTHONY GRAY ([id number]) on 08/10/2019 1:38:19 PM Referred By: Confirmed By:ALICIA CRAMER MD
--- NOTE | 2019-08-07 22:29 | ED.VISSUMM ---
- ER Visit Summary Date of Service: 08/07/19 Chief Complaint: Fast heart rate History of Present Illness: The patient is a 69 M who presents for fast heart rate. He reports chest pain. He says it feels like his heart is jumping out of his chest. It started about an hour ago. Patient has a history of atrial fibrillation and takes Eliquis and metoprolol. He is compliant. He is not on anything for rhythm control. He has a history of coronary disease and follows with the [facility]. He says that his symptoms feel like his prior atrial fibrillation with RVR. Denies any other associated symptoms. He was planning to have an outpatient stress recently but could not go because he hurt his back. He has a stress test scheduled for August 17. Physical Examination: Heart rate is in the 150s to 160s. Otherwise vitals unremarkable. Patient appears uncomfortable but not toxic or in distress. Heart is irregularly irregular. No respiratory distress. Skin normal without diaphoresis or pallor. Alert and oriented. Test Results: EKG shows atrial fibrillation at a rate of 154. Labs and chest x-ray pending. Emergency Department Course and Treatment: Patient was placed on a monitor. He was treated with aspirin and Cardizem. EKG as above. Labs and chest x-ray pending. Will reevaluate. X-ray unremarkable. Platelets 116, stable. Glucose 156. Troponin normal. Patient received a second bolus of Cardizem. He remained tachycardic and in atrial fibrillation. A single dose of metoprolol 5 mg IV was attempted. He had rate control in the 70s and 80s. Sinus rhythm. Repeat EKG shows sinus rhythm at a rate of 77 with no sign of ischemia or infarction pattern. Patient symptoms have resolved. 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 Treatment Plan: As above Disposition: Discharge Impression: 1. Atrial fibrillation with RVR This note was generated with [employer] software. It may contain incorrect words, spelling, and punctuation that were not noted in review of the chart prior to signing ED Disposition - Plan for ED Patient: Referrals: [facility] [Primary Care Provider] -
[2019-08-07] MEDS: dilTIAZem 25 MG/5 ML Vial 20 MG IV BOLUS (22:33)
[2019-08-07 22:34] VITALS: BP 134/97; PULSE 161; RESP 22; O2SAT 98
[2019-08-07] MEDS: Aspirin 81 MG TAB.CHEW 324 MG PO (22:38)
--- NOTE | 2019-08-07 22:40 | RAD_ITS ---
STUDY: X-RAY CHEST REASON FOR EXAM: Male, 69 years old. Chest pain, high heart rate TECHNIQUE: Chest pain COMPARISON: 07/16/2019. FINDINGS: Moderate lung volumes. No infiltrates or effusions are seen. Normal size heart. Normal mediastinum and tata. Normal visualized pulmonary arteries. Normal visualized aortic arch and descending thoracic aorta. Normal visualized thoracic spine. Normal visualized ribs, clavicles, and shoulders. There is no demonstrated abnormality of the visualized soft tissue structures of the upper abdomen. RAD/Chest 1 View (Portable) IMPRESSION: Incomplete expansion of the lungs. No acute chest disease is seen. Electronically Signed: Chi Leon MD at 22:51 EST , Service support ,
[2019-08-07 22:59] LABS: Anion Gap 5 (5-15); BUN 13 mg/dL (7-18); BUN/Creat Ratio 14.5 RATIO (10-20); Chloride 109 mmol/L (98-107); EST Glomerular Filtration Rate 89 mL/min (>60); Est Glom Filt Rate - Afr Amer 107 mL/min (>60); Estimated Creatinine Clearance 70.38 ml/min; Glucose 156 mg/dL (74-106); Potassium 3.8 mmol/L (3.5-5.1); Sodium Level 143 mmol/L (136-145)
[2019-08-07 23:07] VITALS: BP 135/76; PULSE 128; RESP 24; O2SAT 96
[2019-08-07 23:07] LABS: Absolute Lymphocyte Count 1.61 X10^3/uL (0.83-4.51); Absolute Neutrophil Count 5.1 X10^3/uL (2.0-7.7); Basophil# 0.02 X10^3/uL; Basophil% 0.3 % (0-1); Eosinophil# 0.02 X10^3/uL; Eosinophils% 0.3 % (0-5); Hematocrit 41.5 % (40-54); Hemoglobin 13.4 g/dL (13.0-16.5); Lymphocyte # 1.61 X10^3/ul (4.0); Lymphocyte % 21.3 % (19-41); Mean Corp Hgb Conc 32.3 g/dL (32-36); Mean Corpuscular Hgb 28.8 pg (27.0-32.0); Mean Corpuscular Volume 89.2 fL (80-94); Mean Platelet Vol. 12.9 fl (6.2-12.0); Monocyte# 0.79 X10^3/uL; Monocyte% 10.4 % (0-10); NRBC Flagged by Analyzer 0 % (0-5); Neutrophil # 5.11 X10^3/uL (2.7-7.7); Neutrophil % 67.4 % (47-70); Platelet Count 116 K/mm3 (150-450); RBC Distribution Width CV 15.4 % (11.6-14.6); RBC Distribution Width SD 50.2 fl (35.1-43.9); Red Blood Count 4.65 M/mm3 (4.6-6.2); White Blood Count 7.6 K/mm3 (4.4-11.0)
[2019-08-07] MEDS: dilTIAZem 25 MG/5 ML Vial IV BOLUS (23:29)
[2019-08-07 23:30] VITALS: BP 140/81; PULSE 145; RESP 20; O2SAT 98
[2019-08-07 23:52] VITALS: BP 114/68; PULSE 115; RESP 20; O2SAT 98
[2019-08-08 00:07] VITALS: BP 120/67; PULSE 122; RESP 23; O2SAT 98
[2019-08-08] MEDS: Metoprolol Tartrate 5 MG/5 ML Vial IV (00:31)
--- NOTE | 2019-08-08 00:45 | EKG12_ITS ---
Test Reason : REPEAT Blood Pressure : / mmHG Vent. Rate : 077 BPM Atrial Rate : 077 BPM P-R Int : 178 ms QRS Dur : 088 ms QT Int : 376 ms P-R-T Axes : 053 -19 033 degrees QTc Int : 425 ms Normal sinus rhythm Inferior infarct , age undetermined Abnormal ECG Confirmed by BELA SUH, ALICIA ([id number]), photograph editor ANTHONY GRAY ([id number]) on 08/10/2019 1:38:36 PM Referred By: JUANIS Confirmed By:ALICIA CRAMER MD
[2019-08-08 01:00] VITALS: BP 104/51; PULSE 71; RESP 19; O2SAT 98
--- NOTE | 2019-08-08 01:11 | ED.DEP ---
ED Disposition - Plan for ED Patient: Instructions: Atrial Fibrillation [facility] [[facility] -
[2019-08-08 01:20] VITALS: BP 121/71; PULSE 74; RESP 22; O2SAT 98
== END 2019-08-08 01:21 | disposition home or self-care (01) ==
LOC: ED 22:47
PROVIDERS: Emergency Provider Emergency Medicine
DX: I48.91 Unspecified atrial fibrillation (principal); I25.10 Atherosclerotic heart disease of native coronary artery without angina pectoris; I10 Essential (primary) hypertension; Z79.01 Long term (current) use of anticoagulants; Z79.899 Other long term (current) drug therapy
CPT/HCPCS: 71045; 80048; 84484; 85025; 93005; 96374; 96376; 99285; A4216

== ENCOUNTER 2019-08-27 20:49 | Emergency (ER) | payer MEDICARE, OTHER, SELFPAY ==
[2019-08-27 20:50] VITALS: BP 154/112; PULSE 55; RESP 18; TEMP 36.7; O2SAT 96; BMI 32.1
--- NOTE | 2019-08-27 21:06 | EKG12_ITS ---
Test Reason : TACHYCARDIA Blood Pressure : / mmHG Vent. Rate : 156 BPM Atrial Rate : 159 BPM P-R Int : 000 ms QRS Dur : 084 ms QT Int : 262 ms P-R-T Axes : 000 -16 033 degrees QTc Int : 422 ms Atrial fibrillation with rapid ventricular response Inferior infarct , age undetermined, cannot be excluded Abnormal ECG Confirmed by MALU SUH, CARL ([id number]), business editor KATELIN TALLEY ([id number]) on 08/31/2019 10:17:01 AM Referred By: JONO AGUILAR Confirmed By:CARL TORIBIO MD
--- NOTE | 2019-08-27 21:10 | RAD_ITS ---
STUDY: X-RAY CHEST REASON FOR EXAM: Male, 69 years old. Chest pain TECHNIQUE: Single frontal view of the chest. COMPARISON: August 07, 2019. FINDINGS: Cardiac silhouette unremarkable. Pulmonary vascularity unremarkable. Aorta unremarkable. No focal airspace opacities. No pleural effusions. Upper abdomen unremarkable. Osseous structures intact. No pneumothorax. RAD/Chest 1 View (Portable) IMPRESSION: No acute cardiopulmonary findings Electronically Signed: Rhett Sargent, at 21:56 EST Tel , Service support ,
--- NOTE | 2019-08-27 21:10 | ED.VIS.GEN ---
History of Present Illness Chief Complaint: Chest Pain Informant: Patient Onset: Today Context: Sudden Onset Current Severity: Mild Maximum Severity: Moderate Narrative: Presents with chest pressure with pain radiation into the left arm. He states symptoms started rather abruptly after eating dinner tonight. He has a history of paroxysmal A. fib and has had 2 recent visits with similar symptoms and was found to be in A. fib RVR. Patient did have an outpatient stress test through the [place] on August 17 and states it was normal. He is currently on Eliquis. He is on metoprolol for rate control. - Past Medical History (1) Atrial fibrillation with RVR Status: Chronic (2) Atherosclerosis of coronary artery of [place] heart without angina pectoris Status: Chronic Comment: PCI-SANAZ-RCA x 2 08/2017 (3) Essential (primary) hypertension Status: Chronic (4) Hyperlipemia Status: Chronic (5) History of coronary artery stent placement Status: Resolved Comment: PCI-SANAZ-RCA x 2 08/2017 @ [facility] Past Medical History - Allergies and Home Meds Allergies/Adverse Reactions: Allergies No Known Allergies Allergy (Verified 08/27/19 20:52) Primary Care Physician: [facility],[place] [Primary Care Provider] - As soon as possible Prior records reviewed: Yes Surgical History: - - Stented coronaries Smoking Status: Former smoker Review of Systems General: Denies: Chills, Fever Eyes: Denies: Visual changes - bilaterally ENT: Denies: Bilateral ear pain Cardiovascular: Reports: Chest pain, Palpitations, Heart racing Respiratory: Denies: Dyspnea, Cough Gastrointestinal: Denies: Abdominal pain, Nausea, Vomiting, Diarrhea Musculoskeletal: Reports: Myalgias Skin: Denies: Rash Neurological: Denies: Headache Allergy: Denies: Uticaria Physical Exam Vital Signs/Narrative: Vital Signs Temp Pulse Resp BP Pulse Ox 08/27/19 20:50 98.1 F 55 L 18 154/112 H 96 Inital Vital Signs reviewed: Yes General: Well nourished, Well developed Head: Normocephalic ENT: Moist mucous membranes Neck: Supple Cardiovascular: Irregular, Tachycardia Respiratory: No distress, CTA bilaterally Abdomen: Soft, Nontender Skin: Normal color Neurological: Alert, Oriented x3 Psychological: Normal affect Diagnostic/Tx/Re-eval Impressions Chest X-Ray 08/27/19 21:10 IMPRESSION: No acute cardiopulmonary findings Electronically Signed: Rhett Sargent, at 21:56 EST Tel , Service support , 08/27/19 21:10 Chest 1 View (Portable) [RAD] Stat Laboratory Results 08/27/19 08/27/19 21:05 21:05 WBC 9.2 RBC 4.91 Hgb 13.9 Hct 43.8 MCV 89.2 MCH 28.3 MCHC 31.7 L RDW Std Deviation 50.4 H RDW Coeff of Sherley 15.5 H Plt Count 107 L MPV 12.1 H Immature Gran % (Auto) 0.300 Neut % (Auto) 71.2 H Lymph % (Auto) 17.6 L Rice % (Auto) 10.4 H Eos % (Auto) 0.2 Baso % (Auto) 0.3 Absolute Neuts (auto) 6.6 Absolute Lymphs (auto) 1.62 Nucleated RBC % 0 Sodium 140 Potassium 3.9 Chloride 107 Carbon Dioxide 28.0 Anion Gap 5 BUN 12 Creatinine 0.92 Estim Creat Clear Calc 68.85 Est GFR (MDRD) Af Amer 104 Est GFR (MDRD) Non-Af 86 BUN/Creatinine Ratio 13.1 Glucose 166 H Calcium 8.9 Troponin I < 0.015 - EKG Initial EKG Interpretation: Atrial Fibrillation - A. fib RVR with a ventricular response rate of 156. Follow-up EKG Interpretation: Sinus Rhythm - Sinus 83 with no acute ischemia. - Medical Decision Making Patient's prior records are reviewed. Patient has always spontaneously converted once his rate is controlled. He was given 2 doses of metoprolol, 5 mg each. Heart rate remained around 105. He was given 20 mg of Cardizem. Heart rate came down into the 80s. After approximately 45 minutes patient did convert to sinus rhythm. Repeat EKG will be obtained at this time and plan will be to discharge. Patient's troponin is negative and his symptoms have resolved. Patient had a normal stress test 10 days ago. 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 ED Disposition - Plan for ED Patient: Disposition: Home or Assisted Living Diagnosis: Atrial fibrillation Instructions: Atrial Fibrillation Referrals: [facility] [Primary Care Provider] - As soon as possible
[2019-08-27] MEDS: Metoprolol Tartrate 5 MG/5 ML Vial IV ×2 (21:12→21:43)
[2019-08-27] MEDS: 0.9% Normal Saline 1,000 ML 150 ML IV (21:17)
--- NOTE | 2019-08-27 21:17 | ED.RN ---
vitals at time of metoprolol 155/76, 144,20,96% RA
[2019-08-27 21:25] LABS: Absolute Lymphocyte Count 1.62 X10^3/uL (0.83-4.51); Absolute Neutrophil Count 6.6 X10^3/uL (2.0-7.7); Basophil# 0.03 X10^3/uL; Basophil% 0.3 % (0-1); Eosinophil# 0.02 X10^3/uL; Eosinophils% 0.2 % (0-5); Hematocrit 43.8 % (40-54); Hemoglobin 13.9 g/dL (13.0-16.5); Lymphocyte # 1.62 X10^3/ul (4.0); Lymphocyte % 17.6 % (19-41); Mean Corp Hgb Conc 31.7 g/dL (32-36); Mean Corpuscular Hgb 28.3 pg (27.0-32.0); Mean Corpuscular Volume 89.2 fL (80-94); Mean Platelet Vol. 12.1 fl (6.2-12.0); Monocyte# 0.96 X10^3/uL; Monocyte% 10.4 % (0-10); NRBC Flagged by Analyzer 0 % (0-5); Neutrophil # 6.56 X10^3/uL (2.7-7.7); Neutrophil % 71.2 % (47-70); Platelet Count 107 K/mm3 (150-450); RBC Distribution Width CV 15.5 % (11.6-14.6); RBC Distribution Width SD 50.4 fl (35.1-43.9); Red Blood Count 4.91 M/mm3 (4.6-6.2); White Blood Count 9.2 K/mm3 (4.4-11.0)
[2019-08-27 21:39] LABS: Anion Gap 5 (5-15); BUN 12 mg/dL (7-18); BUN/Creat Ratio 13.1 RATIO (10-20); Calcium,Total 8.9 mg/dL (8.5-10.1); Chloride 107 mmol/L (98-107); Creatinine, Serum 0.92 mg/dL (0.70-1.30); EST Glomerular Filtration Rate 86 mL/min (>60); Est Glom Filt Rate - Afr Amer 104 mL/min (>60); Estimated Creatinine Clearance 68.85 ml/min; Glucose 166 mg/dL (74-106); Potassium 3.9 mmol/L (3.5-5.1); Sodium Level 140 mmol/L (136-145)
[2019-08-27 22:13] VITALS: BP 116/69; PULSE 120; RESP 16; O2SAT 96
[2019-08-27] MEDS: dilTIAZem 25 MG/5 ML Vial 20 MG IV BOLUS (22:28)
[2019-08-27] MEDS: Acetaminophen 325 MG Tablet 650 MG PO (22:34)
[2019-08-27 23:11] VITALS: BP 113/68; PULSE 85; RESP 17; O2SAT 94
--- NOTE | 2019-08-27 23:29 | EKG12_ITS ---
Test Reason : REPEAT CONVERTED Blood Pressure : / mmHG Vent. Rate : 083 BPM Atrial Rate : 083 BPM P-R Int : 180 ms QRS Dur : 092 ms QT Int : 380 ms P-R-T Axes : 055 -30 053 degrees QTc Int : 446 ms Normal sinus rhythm Left axis deviation Abnormal ECG Confirmed by MALU SUH, CARL ([id number]), medical editor KATELIN TALLEY ([id number]) on 08/31/2019 10:17:18 AM Referred By: ZEE Confirmed By:CARL TORIBIO MD
[2019-08-28 00:10] VITALS: BP 136/62; PULSE 83; RESP 16; O2SAT 94
== END 2019-08-28 00:12 | disposition home or self-care (01) ==
PROVIDERS: Emergency Provider Emergency Medicine
DX: I48.0 Paroxysmal atrial fibrillation (principal); I25.10 Atherosclerotic heart disease of native coronary artery without angina pectoris; I10 Essential (primary) hypertension; E78.5 Hyperlipidemia, unspecified; Z79.01 Long term (current) use of anticoagulants; Z79.82 Long term (current) use of aspirin; Z79.899 Other long term (current) drug therapy; Z87.891 Personal history of nicotine dependence; Z95.5 Presence of coronary angioplasty implant and graft
CPT/HCPCS: 71045; 80048; 84484; 85025; 93005; 96361; 96374; 96375; 99284; J7030; A4216

== ENCOUNTER → 2020-05-13 09:05 | Outpatient (CLI) | payer OTHER, MEDICARE, SELFPAY ==
--- NOTE | 2020-04-26 01:47 | HP_ITS ---
Intake Vital Signs 04/26/20 BMI 32.1 04/26/20 Height 5 ft 7 in 04/26/20 Weight: 190 lb 04/26/20 BMI 29.7 04/26/20 BP 104/62 04/26/20 Blood Pressure Location Rt brachial 04/26/20 Position Sitting 04/26/20 Respiration 18 Intake Visit Reasons: CSCOPE Chief Complaint: CP Allergies No Known Allergies Allergy (Verified 04/26/20 13:39) Medications Aspirin [Lo-Dose Aspirin EC] 81 mg PO DAILY 11/07/17 [History Confirmed 04/26/20] Brimonidine Tartrate 0.2% [Brimonidine 0.2% 5Ml Bottle] 1 drp EACH EYE BID 11/07/17 [History Confirmed 04/26/20] Doxazosin Mesylate [Cardura] 4 mg PO DAILY 11/07/17 [History Confirmed 04/26/20] Metoprolol Tartrate [Lopressor (beta cindy)] 25 mg PO BID 11/07/17 [History Confirmed 04/26/20] Multivit-Min/Iron/Folic Acid/K [Adults Multivitamin Caplet] 1 tab DAILY 11/07/17 [History Confirmed 04/26/20] Sertraline HCl [Zoloft] 200 mg PO QHS 11/07/17 [History Confirmed 04/26/20] Omeprazole [Prilosec] 20 mg PO DAILY 06/19/18 [History Confirmed 04/26/20] Apixaban [Eliquis] 5 mg PO DAILY 07/16/19 [History Confirmed 04/26/20] ascorbic acid (vitamin C) 500 mg capsule mg PO 04/26/20 [History Confirmed 04/26/20] atorvastatin 80 mg tablet 80 mg PO DAILY 04/26/20 [History Confirmed 04/26/20] buspirone 5 mg tablet 10 mg PO DAILY tab 04/26/20 [History Confirmed 04/26/20] dronedarone 400 mg tablet 400 mg PO BID 04/26/20 [History Confirmed 04/26/20] ferrous sulfate 325 mg (65 mg iron) tablet 325 mg PO BID 04/26/20 [History Confirmed 04/26/20] fluticasone propionate 50 mcg/actuation blister powder for inhalation 1 inh INHALATION BID 04/26/20 [History Confirmed 04/26/20] isosorbide mononitrate 60 mg tablet,extended release 24 hr 30 mg PO DAILY tab 04/26/20 [History Confirmed 04/26/20] menthol 16 % topical spray % TOPICAL 04/26/20 [History Confirmed 04/26/20] urea 20 % topical cream 1 applic TOPICAL BID 04/26/20 [History Confirmed 04/26/20] PFS Medical History Atherosclerosis of coronary artery of [place] heart without angina pectoris (Chronic) Essential (primary) hypertension (Chronic) Hyperlipemia (Chronic) Atrial fibrillation with RVR (Chronic 09/01/18) Aneurysm of infrarenal abdominal aorta (Chronic) Anxiety and depression (Chronic) BPH (benign prostatic hyperplasia) (Chronic) Bilateral nephrolithiasis (Chronic) Carotid artery stenosis (Chronic) Erectile dysfunction (Chronic) GERD (gastroesophageal reflux disease) (Chronic) Gallstones (Chronic) PTSD (post-traumatic stress disorder) (Chronic) Surgical History History of coronary artery stent placement (Resolved 08/2017) Family History Father Leukemia Myocardial infarction Sister Hx of CABG Mother CAD (coronary artery disease) Social History (Updated 04/26/20 @ 13:[address] Deepak Cavazos MD) Smoking Status: Former smoker HPI HPI HPI: FATUMA JARA, is a 69 M who presents to the office today for HPI HPI Surgical H&P: Yes HPI: FATUMA JARA, is a 69 M who presents to the office today for iron deficiency anemia. The patient does not have any gross blood per stool. Patient has been anemic since 2018 he was recently started on iron. His last colonoscopy was in 2011 and he had a repeat in 2013 due to polyps. Patient also has a history of diverticulitis and diverticulosis. The patient is also having some intermittent left lower quadrant pain. ROS General General: Yes fatigue; no weight change Cardio Cardiovascular: Yes heart disease, atrial fibrillation and heart stent; no murmur, pacemaker, high blood pressure, heart attack, palpitations, shortness of breat with exertion or chest pain Psych Psychiatric: Yes depression and anxiety Resp Respiratory: No shortness of breath, Yes sleep apnea, No cough, No COPD, No asthma, No emphysema, No wheezing Gastro Gastrointestinal: Yes abdominal pain, No nausea or vomiting, Yes diarrhea, No constipation, No blood in stool, Yes acid reflux, Yes hemorrhoids, No ulcers, No gallbladder problem, No black,tarry stools Julian Hematologic: Yes blood thinners, Yes anemia Exam Const General: cooperative Orientation: alert, oriented x3 Resp Effort & Inspection: normal respiratory effort Auscultation: clear to auscultation bilaterally Cardio Rate: regular rate Rhythm: regular rhythm Heart Sounds: no murmurs GI Inspection: non-distended Palpation: soft, nontender Assessment & Plan Problems 1. Iron deficiency anemia, unspecified iron deficiency anemia type D50.9 Plan Patient has iron deficiency anemia and requires colonoscopy. According to the patient [facility] explained [facility] that he would not be able to get an EGD and all the recovery would be a colonoscopy. His referral did inform us that he was able to stop his Eliquis for 3 days prior to the procedure. I explained endoscopy in detail to the patient. I explained the risks including but not limited to stroke or heart attack with anesthesia, perforation of the GI tract, bleeding, infection. I explained that any of these could necessitate further emergency surgery. The patient understands and all questions were answered sufficiently. The patient wishes to proceed with procedure. Deepak Cavazos MD Pager: [facility] [address] [place] [address], [address] [place] [address] Office: Orders Orders: Colonoscopy Today D50.9 Coding Level of Care Code Off vis,new,level 3 Diagnoses Iron deficiency anemia, unspecified iron deficiency anemia type D50.9 ??Iron deficiency anemia type: unspecified iron deficiency 04/26/20 1348 <Electronically signed by Deepak venegas MD> Date _ Deepak Cavazos MD
[2020-04-26 13:44] VITALS: BMI 32.1
== END ==
PROVIDERS: Anesthesiology; Visit Provider Surgery
DX: Z11.59 Encounter for screening for other viral diseases (principal)
CPT/HCPCS: 87635; C9803; U0003